=== PATIENT | female | born 1950 | race Caucasian/White ===

== ENCOUNTER → 2018-05-05 03:43 | Outpatient (CLI) | payer MEDICARE, SELFPAY ==
[2018-05-05 09:47] LABS: ALT 29 U/L (12-78); AST 48 U/L (15-37); Albumin 3.6 g/dL (3.4-5.0); Alkaline Phosphatase 123 U/L (46-116); Anion Gap 11.1 mmol/L (3-11); BUN 9 mg/dL (7-18); Bilirubin, Total 0.4 mg/dL (0.2-1.0); CO2 24.9 mmol/L (21.0-32.0); CREATININE 0.68 mg/dL (0.55-1.02); Calcium 8.9 mg/dL (8.5-10.1); Chloride 97 mmol/L (98-107); Cholesterol 199 mg/dL (50-200); Glucose 102 mg/dL (70-100); HDL Cholesterol 69 mg/dL (40-60); LDL CHOLESTEROL 120 mg/dL (<100); Potassium 4.6 mmol/L (3.5-5.1); Sodium 133 mmol/L (136-145); Total Protein 7.3 g/dL (6.4-8.2); Triglyceride 57 mg/dL (30-150)
== END ==
DX: E78.2 Mixed hyperlipidemia (principal); I10 Essential (primary) hypertension; J45.909 Unspecified asthma, uncomplicated; K21.9 Gastro-esophageal reflux disease without esophagitis; R94.5 Abnormal results of liver function studies
CPT/HCPCS: 36415; 80053; 80061; 83721

== ENCOUNTER 2020-05-22 02:38 | Outpatient (CLI) | payer MEDICARE, SELFPAY ==
[2020-05-22 10:46] LABS: ALT 35 U/L (14-59); AST 118 U/L (15-37); Albumin 2.3 g/dL (3.4-5.0); Alkaline Phosphatase 172 U/L (46-116); Anion Gap 11.1 mmol/L (3-11); BUN 10 mg/dL (7-18); Bilirubin, Total 1.7 mg/dL (0.2-1.0); CO2 26.9 mmol/L (21.0-32.0); CREATININE 0.74 mg/dL (0.55-1.02); Calcium 8.4 mg/dL (8.5-10.1); Chloride 93 mmol/L (98-107); Glucose 116 mg/dL (74-106); Potassium 3.8 mmol/L (3.5-5.1); Sodium 131 mmol/L (136-145); Total Protein 7.6 g/dL (6.4-8.2)
== END 2020-05-22 02:58 ==
DX: I10 Essential (primary) hypertension (principal); K21.9 Gastro-esophageal reflux disease without esophagitis; F32.9 Major depressive disorder, single episode, unspecified; R94.5 Abnormal results of liver function studies
CPT/HCPCS: 36415; 80053

== ENCOUNTER 2020-06-15 12:14 | Inpatient (IN) | payer MEDICARE, SELFPAY ==
--- NOTE | 2020-06-15 | DI.US_ITS ---
APPROVED REPORT EXAM: Comprehensive 2D, Doppler, and color-flow Echocardiogram Patient Location: ER Manuscripts Archivist: Lizeth Marquez RDCS (AE) Indications: CHF Other Information Study Quality: Adequate Conclusion Left Ventricle : The left ventricle is normal size. The left ventricular systolic function is normal. The left ventricular ejection fraction is within the normal range. There is normal left ventricular wall thickness. There is normal LV segmental wall motion. Diastolic function is indeterminate. LVEF i s 55-60%. Right Ventricle : Right ventricle is borderline dilated. The right ventricular systolic function is n ormal. The RVSP is 45.9 mmHg. Atria : Left atrium is mildly dilated. The right atrium size is normal. Aortic Valve : The Aortic valve is sclerotic. Aortic valve is trileaflet. There is no aortic valvular stenosis. Mild aortic regurgitation. Mitral Valve : Mild mitral annular calcification. No evidence of mitral valve stenosis. Mild to moder ate mitral regurgitation. Tricuspid Valve : The tricuspid valve is normal in structure. There is no tricuspid valve stenosis. M oderate to severe tricuspid regurgitation. Great Vessels : The aortic root is normal in size. The IVC collapses <50% with inspiration. The ascen ding aorta is mildly dilated. Aortic arch is not well visualized. Other: Large left pleural effusion. Wall motion Left Ventricle The left ventricle is normal size. The left ventricular systolic function is normal. The left ventric ular ejection fraction is within the normal range. There is normal left ventricular wall thickness. T here is normal LV segmental wall motion. Diastolic function is indeterminate. There is no ventricular septal defect visualized. LVEF is 55-60%. Right Ventricle Right ventricle is borderline dilated. The right ventricular systolic function is normal. The RVSP is 45.9 mmHg. Atria Left atrium is mildly dilated. The right atrium size is normal. The interatrial septum is intact with no evidence for an atrial septal defect. Aortic Valve The Aortic valve is sclerotic. Aortic valve is trileaflet. There is no aortic valvular stenosis. Mild aortic regurgitation. Mitral Valve Mild mitral annular calcification. No evidence of mitral valve stenosis. Mild to moderate mitral regu rgitation. Tricuspid Valve The tricuspid valve is normal in structure. There is no tricuspid valve stenosis. Moderate to severe tricuspid regurgitation. Pulmonic Valve The pulmonary valve is normal in structure. There is no pulmonic valvular stenosis. Trace pulmonic re gurgitation. Great Vessels The aortic root is normal in size. The ascending aorta is mildly dilated. Aortic arch is not well vis ualized. The IVC collapses <50% with inspiration. Pericardium There is no pericardial effusion. Large left pleural effusion. 2D Dimensions IVSD d PLAX 1.02 cm F: 0.6-1.0 LV Vol A2C d MOD 67.1 mL LVPW d PLAX 1.00 cm F: 0.6 - 1.0 LV Vol A4C d MOD 52.7 mL LVID d PLAX 3.77 cm F: 3.8 - 5.2 LA vol/ BSA A4C s A-L 29.4 mL/m2 LVDs 2.65 cm F: 2.2 - 3.5 LA Area A4C s MOD 17.11 cm2 Ao Root d 2.58 cm F: 2.7 - 3.3 LV EF A4C MOD 58.8 % RA Area A4C 9.75 cm2 LV EF A2C MOD 55.4 % RA Vol/ BSA A4C s A-L 13.6 mL/m2 LV EF Biplane MOD 57.2 % Ao Asc Diam d 3.40 cm F: 2.3 - 3.1 SV 34.40 mL LV EF Teichholz 57.3 % SV Index 21.02 mL/m2 LVEF (Ha's) 57.20 % F: 54 - 74 LV Volume 48.45 mL F: 46 - 106 LV Volume Index 29.72 mL/m2 F: 29 - 61 LV Vol Biplane MOD 60.1 mL FS 29.50 % M-Mode TAPSE 2.33 cm (M/F) >1.7 LV Diastology MV E' medial 0.064 (>0.07 m/s) E/A Ratio 0.7 LV E/e MED 6.95 (<14) MV E Vmax 0.44 (0.4-1.3 m/s) MV E' lateral 0.088 (>0.1 m/s) MV A Vmax 0.65 (0.4-1.3 m/s) LV E/e LAT 5.05 (<14) MV E/A Ratio 0.65 MV E/E' medial 7.00 MV E/E' lateral 5.05 Aortic Valve LVOT Area 2.73 cm2 AoV Area Vmax 1.92 cm2 LVOT Vmax 0.96 m/s AoV Area/ BSA (Vmax) 1.18 cm2/m2 LVOT Mean Ronaldo. 0.64 m/s IZZY Mean Ronaldo. 1.85 cm2 LVOT Peak Grad 3.7 mmHg IZZY Mean Ronaldo. Index 1.13 cm2/m2 LVOT Mean Grad 1.9 mmHg AR DT 1265 msec LVOT VTI 0.173 m AR PHT 367 msec LVOT Diam s 1.85 cm AoV Vmax 1.37 m/s Velocity Ratio 0.70 AoV Mean Ronaldo. 0.95 m/s AoV Peak Grad 7.5 mmHg LVOT SV 47.39 mL AoV Mean Grad 4.2 mmHg AoV VTI 0.220 m AoV Area VTI 2.15 cm2 AoV Area/ BSA (VTI) 1.31 cm/m2 Mitral Valve MV DT 238 (160-240 msec) MV PHT 69 msec MV Area PHT 3.19 cm2 Pulmonary Valve PV Vmax 0.96 (0.5-1.5 m/s) RVOT Peak Gr. 1.74 mmHg PV Peak Grad 3.7 mmHg RVOT Mean Gr. 0.75 mmHg PV Mean Grad 2.0 mmHg RVOT VTI 0.110 m PV VTI 0.130 m RVOT Vmax 0.66 m/s Tricuspid Valve TR Peak Grad 37.9 mmHg TR Vmax 3.08 m/s RA Pressure 8.00 mmHg RVSP (TR) 45.9 mmHg
--- NOTE | 2020-06-15 | DI.US_ITS ---
EXAM: US ABDOMEN CLINICAL HISTORY: elevated LFT's, ? cirrhosis, new CHF TECHNIQUE: Ultrasound performed using standard protocol. COMPARISON: US US ECHOCARDIOGRAM from 06/15/[address] CHEST WO from 06/15/2020 FINDINGS: Abdominal ultrasound was performed and is of limited technical quality. Aorta was incompletely visua lized, visualized portions are of normal diameter. IVC is of normal diameter. Liver is heterogeneou s in appearance and has a nodular contour consistent with cirrhosis. No biliary dilatation. Signifi cant portions of the liver are nonvisualized. Pancreas is not well seen due to overlying bowel gas. There is no evidence of cholelithiasis. No gallbladder wall thickening. Negative sonographic Potts sign noted. The kidneys are grossly unremarkable in appearance although not well seen. No hydronephrosis or neph rolithiasis. There is massive abdominal ascites as seen CT examination. IMPRESSION: Ascites and findings consistent with hepatic cirrhosis. No evidence of cholelithiasis. DATA REPOSITORY:
--- NOTE | 2020-06-15 12:00 | RT.EKG_ITS ---
APPROVED REPORT Exam: Resting ECG Patient Location: E HR:86 bpm ECG Measurements Heart Rate 86 AXIS SC 160 P 39 QRSd 86 QRS 65 QT 404 T 66 QTc 483 Conclusion Sinus rhythm. Ventricular premature complex. Low voltage, extremity leads..
[2020-06-15 12:06] VITALS: BP 126/90; PULSE 85; RESP 24; TEMP 36.5; O2SAT 96
--- NOTE | 2020-06-15 12:06 | ED.GENADUL_ITS ---
Discharge Plan Disposition Patient Disposition: [facility] INPATIENT Condition: Stable Discharge Details Clinical Impression: CHF (congestive heart failure), Ascites Admit Date/Time: 06/15/20 14:23 Admit Provider: Vasiliy Olivas Attending Provider: Vasiliy Olivas Primary Care Provider: Janice Liao ED Provider: Stephany Shea Medical Decision Making 70-year-old female presents to the ER with chief complaint of generalized weakness which is been ongoing for the last week. Worse the last 3 days. EMS reports that they found her sitting on the floor alert and oriented complaining of weakness her significant other was unable to get her up off the floor. Patient denies fall today but does report a fall yesterday and has had increasingly frequent falls. She does have a history of asthma, depression, alcohol abuse, hypertension, depression. She is alert and oriented x4 upon arrival not complaining of any pain anywhere. She does have increased work of breathing and prolonged expiration she is sating 95% on room air does not wear oxygen on a normal basis. She has no focal neuro deficits noted. No signs of trauma. She denies any chest pain. EKG was reviewed by Dr. Dewayne Arias MD ER attending, please see his official read. CBC showed a white blood cell count of 12.84, absolute neutrophils 10.61 PT 13.8 INR 1.4, sodium 135, calcium 8.4 magnesium 1.5, total bilirubin is 1.4. AST is 74, ALT is 27, alk phos is 178 initial troponin is within normal limits. proBNP is 1372. And albumin is 2.1. CT chest shows bilateral pleural effusions, massive abdominal ascites. EXAM: CT CHEST WO CLINICAL HISTORY: Eval Pulmonary effusions TECHNIQUE: COMPARISON: CR XR CHEST 2V PA LATERAL from 06/15/2020 FINDINGS: Noncontrast CT examination of chest. Was performed. There is massive abdominal ascites and there are bilateral pleural effusions. The hepatic contour is nodular consistent with cirrhosis. No focal pulmonary consolidation seen. No mediastinal or hilar adenopathy. Normal cardiac size. Distended SVC noted, nonspecific. IMPRESSION: Sympathetic pleural effusions in a patient with massive abdominal ascites and cirrhosis. No focal pulmonary abnormality. CT chest without contrast was ordered due to patient's small IV gauge. Patient is a 22-gauge informed by [employer] operations staff officer patient took 6 IV sticks to establish IV access. 1414: Spoke with patient's significant other previous and discussed plan for potential admission here to the hospital for bilateral pleural effusions and increased shortness of breath and weakness. He verbalizes understanding discussed this with patient as well and she verbalizes understanding. 1430: Spoke with Dr. Marquez who is on for hospitalist, discussed case and details with him, who agrees to admit patient for MedSurg telemetry. We will give patient 20 mg of Lasix IV push inform patient and plan of care she verbalizes understanding at this time. HPI General Mode of arrival: EMS . Date/Time Provider Initiated Documentation: 06/15/20 12:22 . Limitations to Documentation: no limitations . Information obtained by: patient and EMS . HPI Narrative: 70-year-old female presents to the ER with chief complaint of generalized weakness which is been ongoing for the last week. Worse the last 3 days. EMS reports that they found her sitting on the floor alert and oriented complaining of weakness her significant other was unable to get her up off the floor. Patient denies fall today but does report a fall yesterday and has had increasingly frequent falls. She does have a history of asthma, depression, alcohol abuse, hypertension, depression. She is alert and oriented x4 upon arrival not complaining of any pain anywhere. She does have increased work of breathing and prolonged expiration she is satting 95% on room air does not wear oxygen on a normal basis. She has no focal neuro deficits noted. No signs of trauma. She denies any chest pain. Related Data Home Medications Medication Instructions Recorded Confirmed aspirin 2 - 3 tab PO BID PRN tab-cap 01/22/13 06/15/20 calcium carbonate-vitamin D3 1 tab-cap PO BID tab.chew 01/22/13 06/15/20 [Os-Rj 500+D Tablet Chewable] multivitamin with minerals 1 cap PO DAILY 01/22/13 06/15/20 azelastine 1 drp OPHTHALMIC BID #1 bottle 01/14/17 06/15/20 Hydrocortisone/Aloe Vera 28 gm TOPICAL TID 05/04/18 06/15/20 [Cortizone-10 1% Creme] mupirocin 1 génesis TOPICAL BID #1 tube 05/04/18 06/15/20 magnesium chloride 64 mg 64 mg PO BID #180 tab-cap 05/05/19 06/15/20 (magnesium chloride) tablet,delayed release triamcinolone acetonide 0.1 % 1 applic TP BID #30 gm 05/05/19 06/15/20 topical ointment fluticasone propionate 50 1 - 2 spray NS daily prn #1 spray 07/22/19 06/15/20 mcg/actuation nasal spray,suspension albuterol sulfate 90 mcg/actuation 2 puff INHALATION Q6H PRN #3 11/05/19 06/15/20 aerosol inhaler inhaler loratadine 10 mg tablet 10 mg PO DAILY PRN #90 tab-cap 05/08/20 06/15/20 omeprazole 20 mg capsule,delayed 20 mg PO DAILY #90 tab-cap 05/08/20 06/15/20 release metoprolol succinate 25 mg 25 mg PO DAILY #90 tab 05/17/20 06/15/20 tablet,extended release 24 hr fluticasone propion-salmeterol 2 inh IH BID 06/15/20 06/15/20 [Advair Diskus] Previous Rx's Medication Instructions Recorded mupirocin 1 génesis TOPICAL BID #1 tube 05/04/18 magnesium chloride 64 mg 64 mg PO BID #180 tab-cap 05/05/19 (magnesium chloride) tablet,delayed release triamcinolone acetonide 0.1 % 1 applic TP BID #30 gm 05/05/19 topical ointment fluticasone propionate 50 1 - 2 spray NS daily prn #1 spray 07/22/19 mcg/actuation nasal spray,suspension albuterol sulfate 90 mcg/actuation 2 puff INHALATION Q6H PRN #3 11/05/19 aerosol inhaler inhaler loratadine 10 mg tablet 10 mg PO DAILY PRN #90 tab-cap 05/08/20 omeprazole 20 mg capsule,delayed 20 mg PO DAILY #90 tab-cap 05/08/20 release metoprolol succinate 25 mg 25 mg PO DAILY #90 tab 05/17/20 tablet,extended release 24 hr Allergies Allergy/AdvReac Type Severity Reaction Status Date / Time diphenhydramine AdvReac Unknown INTOLERANT Verified 06/15/20 12:13 Review of Systems Narrative: Constitutional: Negative for weight loss, alert and oriented, well groomed, normal body habitus, appears comfortable. HEENT: Denies trauma, headaches, blurry vision, nasal discharge, sore throat, trouble swallowing. Chest: Denies chest pain, palpitations, irregular rhythm, hypertension. Respiratory: Denies cough, hemoptysis. Positive shortness of breath. GI: Denies abdominal pain, nausea, vomiting, diarrhea, constipation. : Denies dysuria, hematuria, flank pain, rectal bleeding. Neuro: Denies dizziness, blurry vision, syncope, headache or facial numbness. Positive generalized weakness. Hematologic: Denies easy bruising, intolerance to heat or cold, hair loss. [facility] Medical History Alcohol abuse (06/11/11) macrocytosis Allergic rhinitis Ankle fracture (03/28/06) Impacted cerumen of both ears Family History Mother Essential hypertension Heart disease Father Lung cancer Brother No problems noted. Sister Essential hypertension Depression Son No problems noted. Son No problems noted. Son No problems noted. Daughter No problems noted. Daughter No problems noted. Social History Smoking/Tobacco Use Status: Never Second Hand Exposure: Yes Alcohol Intake: current Alcohol Intake frequency: 0-2 drinks per day Alcohol type: wine Drug use: Never Substance use type: does not use Caregiver/Support person: No Household members: significant other Housing: house Communication Needs: None Do you need help understanding health information?: Rarely Pets and animals: No Sexually active: Yes Do you think of yourself as: straight/heterosexual Current gender identity: female What is your relationship status?: living with partner How often do you talk on the phone with friends or family?: three or more times per week How often do you get together with friends or relatives?: decline to answer How often do you attend denominational or scientology services?: decline to answer Do you belong to any clubs or organized social groups?: no Panel score (0-1 are the most socially isolated patients): 2 What type of physical activity do you participate in: walking Duration: 15-30 minutes/day Frequency: 1-2 times per week Ketty/Nondenominational: [employer] Special ketty needs: No Seatbelt use: always Drive intox or ride w/intox bulk delivery driver: No Do you feel safe at home: Yes Do you feel safe in your relationship?: Yes Exam Narrative Exam Narrative: Constitutional: Alert and oriented x3. Appears stated age. Normal body habitus. Dry mucous membranes. Head: Normocephalic, no trauma. Eyes: Pupils PERRLA, Red reflex noted, EOM's intact. Eyelids symmetrical without lesions, discharge, or swelling. Slight scleral icterus ENT: Bilateral TM's WNL, External ear normal to inspection, no mastoid TTP, swelling, or erythema, Nasal turbinates WNL, no nasal discharge. Normal dentition, Posterior pharynx WNL, no exudate. Chest: RRR, Normal S1, S2, distal pulses intact. Resp: Lungs clear to auscultation bilaterally, no wheezes, rales, or rhonchi. Increased work of breathing, prolonged expiratory.. Musculoskeletal: Normal gait, 5/5 strength to bilateral upper extremities, 2 out of 5 strength to lower extremities. Intact dorsiflexion and pedal flexion. Skin: Capillary refill less than 2 sec. does have multiple healing bruises and skin tear noted on her bilateral upper forearms. Neurologic: Cranial nerves II-XII intact. Alert and oriented x 3. DTR's intact. Hematologic/Lymphatic: No ecchymosis, no lymphadenopathy.
[2020-06-15] MEDS: Normal Saline 1,000 ML 125 ML IV (13:08)
[2020-06-15 13:15] LABS: Abs Immature Grans 0.08 10^3/uL (0.0-0.06); Absolute Basophil Count 0.05 10^3/uL (0.0-0.2); Absolute Lymphocyte Count 1.12 10^3/uL (1.2-3.4); Absolute Monocyte Count 0.92 10^3/uL (0.1-0.8); Basophils % 0.4; Eosinophils % 0.5; HCT 33.9 % (36.0-46.0); HGB 11.4 g/dL (11.2-15.7); Immature Grans % 0.6; Lymphocytes % 8.7; MCH 36.2 pg (27.0-33.0); MCHC 33.6 % (32.0-36.0); MCV 107.6 fL (80-95); MPV 10.1 fL (8.0-11.0); Monocytes % 7.2; Neutrophils % 82.6; Platelet Count 259 10^3/uL (130-400); RBC 3.15 10^6/uL (3.93-5.22); RDW 18.4 % (11.7-14.6); RDW-SD 72.3 fL; WBC 12.84 10^3/uL (4.4-10.8)
[2020-06-15 13:17] LABS: Absolute Eosinophil Count 0.06 10^3/uL (0.0-0.7); Absolute Neutrophil Count 10.61 10^3/uL (1.2-6.7)
--- NOTE | 2020-06-15 13:28 | DI.RAD_ITS ---
EXAM: XR CHEST 2V PA LATERAL CLINICAL HISTORY: Weakness, SOB TECHNIQUE: COMPARISON: No exams were available for comparison FINDINGS: Heart is enlarged. There are moderate-sized bilateral pleural effusions. Minimal streaky radiodensi ties noted in perihilar regions and lung bases, question mild interstitial edema. IMPRESSION: Findings consistent with acute CHF. Appropriate follow-up radiographs requested. RADIATION DOSE DELIVERED: Total DLP
[2020-06-15 13:29] LABS: Anisocytosis 1+; Basophilic Stippling Present; Diff Comment Agrees w/ Instrument; Macrocytosis 2+; Nucleated RBC 1 %
[2020-06-15 13:30] LABS: ALT 27 U/L (14-59); AST 74 U/L (15-37); Albumin 2.1 g/dL (3.4-5.0); Alkaline Phosphatase 178 U/L (46-116); BUN 10 mg/dL (7-18); Bilirubin, Total 1.4 mg/dL (0.2-1.0); CREATININE 0.76 mg/dL (0.55-1.02); Calcium 8.4 mg/dL (8.5-10.1); Chloride 100 mmol/L (98-107); Glucose 113 mg/dL (74-106); Magnesium 1.5 mg/dL (1.8-2.4); Polychromasia Present; Potassium 3.6 mmol/L (3.5-5.1); Sodium 135 mmol/L (136-145); Target Cells 2+
[2020-06-15 13:32] LABS: Troponin I < 0.05 ng/mL (<0.06)
--- NOTE | 2020-06-15 14:00 | DI.CT_ITS ---
EXAM: CT CHEST WO CLINICAL HISTORY: Eval Pulmonary effusions TECHNIQUE: COMPARISON: CR XR CHEST 2V PA LATERAL from 06/15/2020 FINDINGS: Noncontrast CT examination of chest. Was performed. There is massive abdominal ascites and there are bilateral pleural effusions. The hepatic contour is nodular consistent with cirrhosis. No focal pulmonary consolidation seen. No mediastinal or hilar adenopathy. Normal cardiac size. Di stended SVC noted, nonspecific. IMPRESSION: Sympathetic pleural effusions in a patient with massive abdominal ascites and cirrhosis. No focal pu lmonary abnormality. RADIATION DOSE DELIVERED: 326.42mGy.cm Total DLP
[2020-06-15] MEDS: MAGNESIUM SULFATE 1 GM/100 ML BAG IVPB ×2 (14:02→17:30)
[2020-06-15 14:27] LABS: NT-proBNP 1372 pg/mL (<300)
--- NOTE | 2020-06-15 14:30 | W.PM.HP.N ---
Date of service: 06/15/20 Time of Service: 14:30 Assessment and Plan Assessment and plan (1) Ambulatory dysfunction: Status: Acute Assessment and plan: severe will multiple recent falls. falls precautions, PT/OT, denies saddle anesthesia, no urinary retention or incontinence of bowel. no signs of cord compression syndrome. (2) CHF (congestive heart failure): Status: Chronic Assessment and plan: new diagnosis, possible cirrhotic cardiomyopathy, echocardiogram pending. given lasix in ED. monitor I&O, daily weights, consider jason if BP allows and echo confirms. large pleural effusion likely secondary to ascities (3) Elevated LFTs: Status: Chronic Assessment and plan: likely ETOH abuse, slightly improved since april, massive ascities, order abdominal US to evaluate for cirrhosis, malignancy, varices. add coags (4) Asthma: Status: Chronic Assessment and plan: SOB symptoms suspected to be r/t fluid overload, will continue home inhalers and closely monitor (5) Alcohol abuse: Status: Suspected Assessment and plan: CIWA scale while hospitalized. denies excessive or daily use, states once in a while thiamine suspicion of cirrhosis. (6) Esophageal reflux: Status: Chronic Assessment and plan: continue omeprazole (7) Hypertension: Status: Chronic Assessment and plan: stable, continue metoprolol, monitor and adjust as needed. (8) DVT prophylaxis: Status: Acute Assessment and plan: teds scds heparin (9) Discharge planning issues: Status: Acute Assessment and plan: case management consulted case discussed with Dr Olivas who is in agreement with plan History of Present Illness History of Present Illness Chief Complaint: generalized weakness Narrative: This is a 70-year-old female presented to the ED with chief complaint of generalized weakness which is been ongoing for the last week. Worse the last 3 days. EMS reports that they found her sitting on the floor alert and oriented complaining of weakness her significant other was unable to get her up off the floor. Patient denies fall today but does report a fall yesterday and has had increasingly frequent falls. She does have a history of asthma, depression, alcohol abuse, hypertension, depression. She is alert and oriented x4 upon arrival not complaining of any pain anywhere. She does have increased work of breathing and prolonged expiration she is sating 95% on room air does not wear oxygen on a normal basis. She has no focal neuro deficits noted. She denies any chest pain or fevers. work up in the ED concerning for CHF. She will be given lasix IV and admitted to med/surg for further evaluation. Review of Systems Constitutional Constitutional: Reports fatigue, Reports frequent falls and Reports weakness (generalized) Cardiovascular Cardiovascular: Denies chest pain and Reports dyspnea Respiratory Respiratory: Reports cough and Reports dyspnea Gastrointestinal Gastrointestinal: Denies abdominal pain Integumentary/Breasts Skin/Breast: Reports other (skin tear right forearm, scattered bruising of various stages of healing) Neurologic Neurologic: Reports frequent falls and Reports weakness (generalized) Endocrine Endocrine: Reports fatigue [facility] Medical History Alcohol abuse (06/11/11) macrocytosis Allergic rhinitis Ankle fracture (03/28/06) Impacted cerumen of both ears Family History Mother Essential hypertension Heart disease Father Lung cancer Brother No problems noted. Sister Essential hypertension Depression Son No problems noted. Son No problems noted. Son No problems noted. Daughter No problems noted. Daughter No problems noted. Social History Smoking/Tobacco Use Status: Never Second Hand Exposure: Yes Alcohol Intake: current Alcohol Intake frequency: 0-2 drinks per day Alcohol type: wine Drug use: Never Substance use type: does not use Caregiver/Support person: No Household members: significant other Housing: house Communication Needs: None Do you need help understanding health information?: Rarely Pets and animals: No Sexually active: Yes Do you think of yourself as: straight/heterosexual Current gender identity: female What is your relationship status?: living with partner How often do you talk on the phone with friends or family?: three or more times per week How often do you get together with friends or relatives?: decline to answer How often do you attend gnosticism or worship services?: decline to answer Do you belong to any clubs or organized social groups?: no Panel score (0-1 are the most socially isolated patients): 2 What type of physical activity do you participate in: walking Duration: 15-30 minutes/day Frequency: 1-2 times per week Ketty/Uatsdin: Moravian Special ketty needs: No Seatbelt use: always Drive intox or ride w/intox speedboat driver: No Do you feel safe at home: Yes Do you feel safe in your relationship?: Yes Meds Home Medications and Allergies Home Medications Medication Instructions Recorded Confirmed Type aspirin 2 - 3 tab PO BID PRN tab-cap 01/22/13 06/15/20 History calcium carbonate-vitamin D3 1 tab-cap PO BID tab.chew 01/22/13 06/15/20 History [Os-Rj 500+D Tablet Chewable] multivitamin with minerals 1 cap PO DAILY 01/22/13 06/15/20 History azelastine 1 drp OPHTHALMIC BID #1 bottle 01/14/17 06/15/20 History Hydrocortisone/Aloe Vera 28 gm TOPICAL TID 05/04/18 06/15/20 History [Cortizone-10 1% Creme] mupirocin 1 génesis TOPICAL BID #1 tube 05/04/18 06/15/20 Rx magnesium chloride 64 mg 64 mg PO BID #180 tab-cap 05/05/19 06/15/20 Rx (magnesium chloride) tablet,delayed release triamcinolone acetonide 0.1 % 1 applic TP BID #30 gm 05/05/19 06/15/20 Rx topical ointment fluticasone propionate 50 1 - 2 spray NS daily prn #1 spray 07/22/19 06/15/20 Rx mcg/actuation nasal spray,suspension albuterol sulfate 90 mcg/actuation 2 puff INHALATION Q6H PRN #3 11/05/19 06/15/20 Rx aerosol inhaler inhaler loratadine 10 mg tablet 10 mg PO DAILY PRN #90 tab-cap 05/08/20 06/15/20 Rx omeprazole 20 mg capsule,delayed 20 mg PO DAILY #90 tab-cap 05/08/20 06/15/20 Rx release metoprolol succinate 25 mg 25 mg PO DAILY #90 tab 05/17/20 06/15/20 Rx tablet,extended release 24 hr fluticasone propion-salmeterol 2 inh IH BID 06/15/20 06/15/20 History [Advair Diskus] Allergies Allergy/AdvReac Type Severity Reaction Status Date / Time diphenhydramine AdvReac Unknown INTOLERANT Verified 06/15/20 12:13 Exam Const General: cooperative, comfortable, no acute distress and ill appearing (older than stated age) chronically Nutritional Appearance: average body habitus Orientation: alert, awake and oriented x3 [facility] Head: normal to inspection, normocephalic and atraumatic Mouth: oral mucosae normal Resp Effort & Inspection: no cough and tachypneic Auscultation: diminished lung sounds Cardio Rate: regular rate Rhythm: regular rhythm GI Inspection: edema Palpation: nontender and ascites (extensive) Auscultation: normal bowel sounds Skin General skin exam: ecchymosis (various scattered bruising) Lesions: lesion noted (abrasion/skin tear to right upper extremity) Rashes: no rashes Neuro General: patient alert, patient awake, patient oriented x3 and moves all extremities Extrem General: no pedal edema Results Labs Result diagrams: 06/16/20 06:58 06/16/20 06:58 Labs: Laboratory Results - last 24 hr 06/15/20 06/15/20 06/15/20 13:00 13:00 13:00 WBC 12.84 H RBC 3.15 L Hgb 11.4 Hct 33.9 L MCV 107.6 H MCH 36.2 H MCHC 33.6 RDW 18.4 H Plt Count 259 MPV 10.1 Immature Gran % 0.6 Neutrophils % 82.6 Lymphocytes % 8.7 Monocytes % 7.2 Eosinophils % 0.5 Basophils % 0.4 Nucleated RBC % 1 Absolute Neutrophils 10.61 H Absolute Lymphocytes 1.12 L Absolute Monocytes 0.92 H Absolute Eosinophils 0.06 Absolute Basophils 0.05 RBC Morphology See below Polychromasia Present Basophilic Stippling Present Anisocytosis 1+ Macrocytosis 2+ Sodium 135 L Potassium 3.6 Chloride 100 Carbon Dioxide 27.0 Anion Gap 8.0 BUN 10 Creatinine 0.76 Estimated GFR/1.73 m2 >= 60.00 Glucose 113 H Calcium 8.4 L Magnesium 1.5 L Total Bilirubin 1.4 H AST 74 H ALT 27 Alkaline Phosphatase 178 H Troponin I < 0.05 NT-Pro-B Natriuret Pep 1372 H Total Protein 8.0 Albumin 2.1 L Last Vital Signs Temp 36.5 C 06/15/20 12:06 Pulse 85 06/15/20 12:06 Resp 24 06/15/20 12:06 BP 126/90 06/15/20 12:06 Pulse Ox 96 06/15/20 12:06 COVID-19 Screening Have you,or household,traveled outside [place] in last 14 days?: No Had IN PERSON contact w/suspected or confirmed C-19 person: No
[2020-06-15 15:01] LABS: INR 1.4 (0.9-1.1); Prothrombin Time 13.8 sec (9.3-11.0)
[2020-06-15 16:41] LABS: Troponin I < 0.05 ng/mL (<0.06)
[2020-06-15 17:06] VITALS: BP 130/85; PULSE 89; RESP 20; TEMP 35.5; O2SAT 92
[2020-06-15] MEDS: Potassium Chloride 20 MEQ TABCR PO ×2 (17:30→19:05)
[2020-06-15] MEDS: Furosemide 20 MG/2 ML VIAL (17:30)
[2020-06-15] MEDS: Heparin 5,000 UNITS/ML VIAL 5000 UNITS SC (19:03)
[2020-06-15] MEDS: Metoprolol 12.5 MG TAB PO (19:06)
[2020-06-15] MEDS: Magnesium Chloride 64 MG TABCR PO (19:06)
[2020-06-15] MEDS: Budesonide/Formoterol 160/4.5 6 GM 60 PUFF INH IH (19:32)
[2020-06-16 00:14] VITALS: BP 134/89; PULSE 89; RESP 16; TEMP 36.3; O2SAT 94
[2020-06-16 01:47] LABS: COVID-19 RT-PCR UVMMC Result Negative (Negative)
[2020-06-16 04:00] VITALS: BP 138/82; PULSE 66; RESP 18; TEMP 36.6; O2SAT 97
[2020-06-16] MEDS: Heparin 5,000 UNITS/ML VIAL 5000 UNITS SC ×2 (06:10→18:22)
[2020-06-16 07:17] LABS: HCT 30.8 % (36.0-46.0); HGB 10.5 g/dL (11.2-15.7); MCHC 34.1 % (32.0-36.0); MCV 105.5 fL (80-95); MPV 10.2 fL (8.0-11.0); Platelet Count 219 10^3/uL (130-400); RBC 2.92 10^6/uL (3.93-5.22); RDW 17.2 % (11.7-14.6); RDW-SD 66.2 fL
[2020-06-16 07:21] LABS: Ammonia 20 umol/L (11-32)
[2020-06-16 07:32] LABS: ALT 22 U/L (14-59); AST 55 U/L (15-37); Albumin 1.6 g/dL (3.4-5.0); Alkaline Phosphatase 132 U/L (46-116); Anion Gap 7.5 mmol/L (3-11); BUN 11 mg/dL (7-18); CO2 27.5 mmol/L (21.0-32.0); CREATININE 0.61 mg/dL (0.55-1.02); Calcium 7.8 mg/dL (8.5-10.1); Chloride 102 mmol/L (98-107); Glucose 96 mg/dL (74-106); Magnesium 1.6 mg/dL (1.8-2.4); Potassium 3.4 mmol/L (3.5-5.1); Sodium 137 mmol/L (136-145); Total Protein 6.3 g/dL (6.4-8.2)
[2020-06-16 07:34] LABS: Troponin I < 0.05 ng/mL (<0.06)
[2020-06-16 08:27] VITALS: BP 142/93; PULSE 89; RESP 18; TEMP 36.6; O2SAT 96
[2020-06-16] MEDS: Omeprazole 20 MG CAPCR PO (08:31)
[2020-06-16] MEDS: Furosemide 20 MG TAB PO (08:31)
[2020-06-16] MEDS: Metoprolol 12.5 MG TAB PO (08:31)
[2020-06-16] MEDS: Normal Saline Flush 10 ML SYR IVP ×2 (08:31→09:41)
[2020-06-16] MEDS: Budesonide/Formoterol 160/4.5 6 GM 60 PUFF INH IH ×2 (08:52→20:09)
--- NOTE | 2020-06-16 09:32 | OT.INIE ---
Occupational Therapy Notes Inpatient Occupational Therapy Evaluation Date: 06/16/20 Referring Doctor:Jackie Grider NP OT Orders: Non-URgent Precautions: Fall, Standard, Full PATIENT PROFILE/ADMITTING DIAGNOSIS: Pt is a 70 year old female who reported to the ED on 06/15/20. Pt was admitted to Med Surg with a dx of CGF, Ascites, asthma, c/o generalized weakness, elevated LFTs, suscpected alcohol abuse, esophageal reflux, HTN and frequent falls. Past Medical History- Medical History Alcohol abuse (06/11/11) macrocytosis Allergic rhinitis Ankle fracture (03/28/06) Impacted cerumen of both ears Social History/Home Situation: Pt states that she lives with her significant other Luis Manuel. She states that she does not drive and is (I) at her baseline level of function. She has decreased safety in the past week due to multiple falls, and she states that she is (I) with her dressing and bathing inthe sitting position. Equipment owned/DME: shower chair, grab bars, raised toilet seat SUBJECTIVE: Pt was sitting in chair when OT arrived. She reports that she is not interested in OT services at this time and would like to hold on this service. OBJECTIVE: General Observation: IV (L) UE, telemetry Mental Status: A&Ox4 ROM: RUE WFL L UE WFL STRENGTH: RUE 4/5 throughout globally LUE 4/5 throughout globally SENSATION: Intact (B) UE FUNCTIONAL MOBILITY/ADLS: [] *Pt denies performance of all ADLs/IADL routines, she states that she is not interested in OT services and would like to hold at this time. EATING (I) sitting in chair BALANCE: Static sitting Normal Dynamic Sitting Normal SPECIAL TESTS: Daily Activity Limitations Standardized Measure [facility] AM -PAC ?6 clicks? Daily Activity Inpatient Short Form: Raw score: 21 Standardized score: 44.27 CMS score: 32.79% INFORMED CONSENT/EDUCATION: Pt instructed in purpose of OT Consult and plan of care. ASSESSMENT: Patient is a 70-year-old female referred to occupational therapy services with diagnosis of CHF, Ascites, asthma, c/o generalized weakness, elevated LFTs, freq falls, alcohol abuse which is suspected, esophageal reflux, HTN. Patient presents with clinical signs and symptoms consistent with dx. OT went to see pt for OT consult and pt refuses the need for skilled OCcupational Therapy at this time. She reports that she feels that she is (I) and at her baseline and would benefit more from Physical Therapy to strengthen her legs. OT will plan to discharge pt at this time based on her refusal for services. [facility] score 21 Patient is assessed as a Low 34738 complexity based on the following: History: see above Examination: see functional limitations as noted above Presentation: evolving Decision Making: [facility] 21 GOALS N/A seen for OT consult only. PLAN OF CARE/TREATMENT PLAN: Discharge skilled OT services. DISCHARGE RECOMMENDATIONS Pt is refusing Occupational Therapy services at this time. She states that she feels that her deficits are more related to Physical Therapy. OT will discharge pt at this time and recommends that pt return home when medically cleared per MD. TREATMENT TIME/MINUTES/CODES 75840, 20 minutes (09:20) Ronda Escobedo, OTR/L [facility]
[2020-06-16] MEDS: Spironolactone 50 MG TAB 100 MG PO (09:40)
[2020-06-16] MEDS: Furosemide 20 MG TAB 40 MG PO (09:41)
[2020-06-16] MEDS: MAGNESIUM SULFATE 2 GM/50 ML BAG IVPB (09:41)
[2020-06-16] MEDS: Potassium Chloride 20 MEQ TABCR PO (09:41)
--- NOTE | 2020-06-16 10:01 | PDOC.CMIN ---
- If Service Date Differs Date of service: 06/16/20 Time of Service: 17:25 Care Management Initial Assess REASON FOR HOSPITALIZATION:: CHF PAST MEDICAL HISTORY/PAST SURGICAL HISTORY:: Alcohol use disorder, allergic rhinitis, ankle fracture, impacted cerumen of both ears PREVIOUS FUNCTIONAL STATUS/SOCIAL/FAMILY SUPPORTS:: Vesta resides in [facility] with her life partner. She has a son, Yohannes who resides in [place] and is her main contact listed. She struggles with alcohol use disorder and has ambulatory dysfunction with multiple recent falls and new diagnosis of CHF. CURRENT FUNCTIONAL STATUS:: Vesta is being closely monitored in the ICU for CHF and alcohol withdrawal. She is on CIWA protocol and will be medicated accordingly. ADVANCE DIRECTIVES:: None on file. Has patient been provided with info about the portal/API?: No Did the patient sign up for the portal?: No CODE STATUS:: Full Code INSURANCE COVERAGE / FINANCIAL ISSUES:: Medicare. AARP CURRENT HOME/COMMUNITY SERVICES/EQUIPMENT:: No current services, equipment. PRIMARY CARE PHYSICIAN:: Janice Liao POTENTIAL DISCHARGE NEEDS:: Evaluation for further needs; currently a max 2 assist; may require SNF or increased services upon discharge. Anticipate PT consult to inform discharge planning considerations. PATIENT/FAMILY EDUCATION NEEDS:: Review discharge instructions, discuss Ask Me Three. ANTICIPATED BARRIERS TO DISCHARGE:: None identified at this time. TRANSPORTATION:: TBD by disposition. PLAN:: Vesta is being closely monitored in the ICU for CHF and alcohol withdrawal. She is on CIWA protocol and will be medicated accordingly. Evaluation for further needs; currently a max 2 assist; may require SNF or increased services upon discharge. Anticipate PT consult to inform discharge planning considerations. CM continues to follow.
--- NOTE | 2020-06-16 10:05 | IN_ITS ---
Date of service: 06/16/20 Time of Service: 10:05 PT Notes Visit Reasons: Congestive heart failure Physical Therapy Inpatient Initial Evaluation Date: 06/16/2020 Referring Doctor: Jackie Grider NP PT Orders: PT CONSULT: Eval/treat Precautions: Fall. Standard. Activity as tolerated Patient Profile/Admitting Diagnosis: Vesta is a 70-year-old female who presented to the ED on 06/15/2020 with a chief presentation of generalized weakness that has lasted for a week and was worse the past 3 days prior to ED admission. Per chart, EMS found her sitting on the floor alert and oriented with significant other unable to lift her off the floor. Patient is diagnosed with ambulatory dysfunction with chronic diagnosis of CHF, asthma, alcohol abuse, esophageal reflux, and hypertension. PMHX: Medical History Alcohol abuse (06/11/11) Macrocytosis Allergic rhinitis Ankle fracture (03/28/06) Impacted cerumen of both ears Social History/Home Situation: Patient lives with significant other in a private home with 3 steps to enter at the front and 4 at the back. She states that Luis Manuel her significant other is planning on building a ramp at the back. He states that she shares that house chores with Luis Manuel. She reports that she staff started using a front wheeled walker last Friday due to increasing weakness. 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 Equipment Owned/DME: Front wheeled walker, single-point cane, wheelchair Subjective: Vesta expresses that she needs a lot of help getting up. She reports that her legs may not be able to support her. She stresses that she does not want a fall on the floor when she stands up. She is considering SNF placement for short-term rehab in order to reduce fall risk at home. General Observation: Patient sitting on bedside chair. Fearful of falling. Telemetry monitoring in place. IV in the left UE. Mental Status: Alert and oriented x 4 Pain: None reported ROM: Right Upper Extremity: Shoulder flexion unable to complete the last 25% of the normal range. Shoulder abduction unable to complete the last 25% of the normal range. Elbow flexion WFL. Wrist flexion WFL. Opening and closing of hand WFL. Left Upper Extremity: Shoulder flexion unable to complete the last 25% of the normal range. Shoulder abduction unable to complete the last 25% of the normal range. Elbow flexion WFL. Wrist flexion WFL. Opening and closing of hand WFL. Right Lower Extremity: Hip flexion unable to complete the last 75% of the normal range. Hip abduction WFL unable to complete the last 75% of the normal range.. Knee flexion allows up to 50% of available range knee extension negative. 45 degrees. Ankle dorsiflexion about 10 degrees is. Ankle plantarflexion WFL. Left Lower Extremity: Hip flexion unable to complete the last 75% of the normal range. Hip abduction WFL unable to complete the last 75% of the normal range.. Knee flexion allows up to 50% of available range knee extension negative. 45 degrees. Ankle dorsiflexion about 10 degrees. Ankle plantarflexion WFL. Strength: Right Upper Extremity: Shoulder flexors 3-/5. Shoulder abductors 3-/5. Elbow flexors 4/5. Elbow extensors 4/5. Outside [employer] Sales weak but functional. Left Upper Extremity: Shoulder flexors 3-/5. Shoulder abductors 3-/5. Elbow flexors 4/5. Elbow extensors 4/5. Outside B2[employer] Sales weak but functional. Right Lower Extremity: Hip flexors 3-/5. Hip abductors 3-/5. Knee flexors 3-/5. Knee extensors 3-/5. Ankle dorsiflexors 3-/5. Ankle plantarflexors 4-/5. Left Lower Extremity:Hip flexors 3-/5. Hip abductors 3-/5. Knee flexors 3-/5. Knee extensors 3-/5. Ankle dorsiflexors 3-/5. Ankle plantarflexors 4-/5. Sensation: Intact as to pain and pressure on bilateral lower extremities. Bed Mobility/Transfers: Patient sitting on bedside chair Sit to stand moderate assist of 2,significantly fearful of falling Stand to sit minimal assist Chair to bedside commode moderate assist of 2,significantly fearful of falling Gait: 4 steps +4 steps using front wheeled walker with full weight bearing with moderate assist of 2 with very low self-confidence and is very fearful of falling. Very hesitant to take a step. Decreased step height. Balance: Static Sitting: Normal Dynamic Sitting: Good Static Standing: Fair Dynamic Standing: Poor Special Tests: Mobility Limitations Standardized Measure [employer] AM-PAC 6 clicks Basic Mobility Inpatient Short Form: Raw Score: 11 CMS Score: 73% deficit Informed Consent/Education: Patient instructed in purpose of PT consult and plan of care. Assessment: Vesta demonstrates significant fear of falling and requires the use of a front wheeled walker and assist of 2 people as well as encouragement and reassurance to perform transfers and ambulation, generalized weakness, gait instability, balance impairment, and increased risk for falls. Vesta is a 70-year-old female who presented to the ED on 06/15/2020 with a chief presentation of generalized weakness that has lasted for a week and was worse the past 3 days prior to ED admission. Per chart, EMS found her sitting on the floor alert and oriented with significant other unable to lift her off the floor. Patient is diagnosed with ambulatory dysfunction with chronic diagnosis of CHF, asthma, alcohol abuse, esophageal reflux, and hypertension. Patient presents with clinical signs and symptoms consistent with current/admitting diagnoses that have resulted to mobility limitations, gait instability, generalized weakness, and impairment of motor control as demonstrated by the following impairment level findings: 1. Decreased strength to B LE and UE major muscle groups 2. Impaired standing balance 3. Impaired activity tolerance 4. Limitation of joint range of motion in B UE/LE 5. Significant fear of falling Impairments are contributing to the following functional limitations: 1. Dependent bed mobility skills 2. Increased dependence with transfers 3. Inability to safely ambulate without assistive device and physical assistance 4. Increase completion time for mobility ADL performance 5. Increased fall risk 6. Inability to negotiate steps alone safely Patient is assessed as a 35993 moderate complexity based on the following: History: 70-year-old female with impairment level findings, functional limitations, and past medical history as indicated above Examination: Demonstrable impairment in strength, balance, and mobility level with underlying impairments and functional limitations as documented above Presentation:Evolving Decision Makin moderate complexity Goals: Goals X1 week 1. Supine-Sit independent 2. Sit-Supine independent 3. Sit-Stand independent 4. Stand-Sit independent 5. Bed-Chair independent 6. Chair-Bed independent 7. Independent gait on level surface with use of least restrictive device for at least 300 feet without report of pain nor dyspnea 8. Independent stair negotiation while holding onto bilateral rails for at least 5 steps without report of pain nor dyspnea 9. Good static and dynamic standing balance/tolerance Plan of Care/Treatment Plan: 1-2x/day, 7 days/week x 1 week. Plan of care has been reviewed with the TECHNOLOGY DIRECTOR providing the service under Physical Therapy direction. Initiate Physical Therapy intervention for strengthening, bed mobility, transfers, gait, stairs, balance training, use of assistive device. DISCHARGE RECOMMENDATIONS: Patient will benefit from correction facility placement for continued skilled physical therapy services in order to progress mobility level, strength, and balance in preparation for a safe discharge to home. TREATMENT CODE/TIME: 81253 x 25 minutes, [id number] x 15 minutes beginning at 10:05 AM. Thank you for the opportunity to participate in the care of this patient. Katya Chan PT, DPT, CLT [facility] [place], [place]
[2020-06-16 11:30] VITALS: BP 95/63; PULSE 75; RESP 19; TEMP 36.8; O2SAT 98
--- NOTE | 2020-06-16 13:01 | PGE_ITS ---
Date of Service Date of service: 06/16/20 Time of Service: 13:01 Assessment and Plan Assessment and plan (1) Cirrhosis of liver: Status: Acute Assessment and plan: d/t ETOH. has moderate ascities. some confusion overnight, likely hepatic encephalopathy started on spironolactone 100 mg and lasix 40 mg. also with hypoalbuminemia. nutrition consult placed ETOH abstinence discussed child-ramirez score of 10, class C (decompensated) 2 gm sodium diet, nutrition consult. no NSAIDS (2) Ambulatory dysfunction: Status: Acute Assessment and plan: severe will multiple recent falls. falls precautions, PT/OT, suspect possible ataxia from ETOH use. will continue to monitor. denies saddle anesthesia, no urinary retention or incontinence of bowel. no signs of cord compression syndrome. (3) CHF (congestive heart failure): Status: Chronic Assessment and plan: echo shows EF 55-60%. continue lasix and spironolactone. monitor I&O, daily weights, likely secondary to cirrhosis large pleural effusion likely secondary to ascities (4) Asthma: Status: Chronic Assessment and plan: respiratory symptoms suspected to be r/t fluid overload, will continue home inhalers and closely monitor add incentive spirometer (5) Alcohol abuse: Status: Suspected Assessment and plan: CIWA scale while hospitalized. denies excessive or daily use, states once in a while scoring 4 overnight high dose thiamine 2/5 days ativan prn abstinence discussed, not interested in rehab at this time with symptoms of grade 1 hepatic encephalopathy (6) Esophageal reflux: Status: Chronic Assessment and plan: continue omeprazole (7) Hypertension: Status: Chronic Assessment and plan: blood pressures low with diuresis, avoid BB and NSAIDS discontinue metoprolol monitor for now. (8) Severe protein-calorie malnutrition: Status: Acute Assessment and plan: nutrition consult high protein shakes between meals. (9) DVT prophylaxis: Status: Acute Assessment and plan: teds scds heparin (10) Discharge planning issues: Status: Acute Assessment and plan: case management consulted, will likely need [facility] rehab for severe ambulatory dysfunction, may benefit from ETOH rehab if interested case discussed with Dr Olivas who is in agreement with plan Subjective Subjective Interval history since last seen: some confusion overnight, otherwise no new c/o. working with physical therapy. poor po intake. no fevers. has oxygen requirements today. Exam Const General: cooperative, comfortable, no acute distress and ill appearing (older than stated age) chronically Nutritional Appearance: average body habitus Orientation: alert, awake and oriented x3 HENMT Head: normal to inspection, normocephalic and atraumatic Mouth: oral mucosae normal Resp Effort & Inspection: no cough and tachypneic Auscultation: diminished lung sounds Cardio Rate: regular rate Rhythm: regular rhythm GI Inspection: edema Palpation: nontender and ascites (extensive) Auscultation: normal bowel sounds Skin General skin exam: ecchymosis (various scattered bruising) Lesions: lesion noted (abrasion/skin tear to right upper extremity) Rashes: no rashes Neuro General: patient alert, patient awake, patient oriented x3 and moves all extremities Extrem General: no pedal edema Objective Last Vital Signs Temp 36.8 C 06/16/20 11:30 Pulse 75 06/16/20 11:30 Resp 19 06/16/20 11:30 BP 95/63 L 06/16/20 11:30 Pulse Ox 98 06/16/20 11:30 Laboratory Results - last 24 hr 06/15/20 06/15/20 06/15/20 13:00 13:00 13:00 WBC 12.84 H RBC 3.15 L Hgb 11.4 Hct 33.9 L MCV 107.6 H MCH 36.2 H MCHC 33.6 RDW 18.4 H Plt Count 259 MPV 10.1 Immature Gran % 0.6 Neutrophils % 82.6 Lymphocytes % 8.7 Monocytes % 7.2 Eosinophils % 0.5 Basophils % 0.4 Nucleated RBC % 1 Absolute Neutrophils 10.61 H Absolute Lymphocytes 1.12 L Absolute Monocytes 0.92 H Absolute Eosinophils 0.06 Absolute Basophils 0.05 RBC Morphology See below Polychromasia Present Basophilic Stippling Present Anisocytosis 1+ Macrocytosis 2+ PT INR Sodium 135 L Potassium 3.6 Chloride 100 Carbon Dioxide 27.0 Anion Gap 8.0 BUN 10 Creatinine 0.76 Estimated GFR/1.73 m2 >= 60.00 Glucose 113 H Calcium 8.4 L Magnesium 1.5 L Total Bilirubin 1.4 H AST 74 H ALT 27 Alkaline Phosphatase 178 H Ammonia Troponin I < 0.05 NT-Pro-B Natriuret Pep 1372 H Total Protein 8.0 Albumin 2.1 L COVID-19 PCR Nasopharyn COVID-19 PCR Ref Test Perform Site 06/15/20 06/15/20 06/15/20 13:00 16:08 16:08 WBC RBC Hgb Hct MCV MCH MCHC RDW Plt Count MPV Immature Gran % Neutrophils % Lymphocytes % Monocytes % Eosinophils % Basophils % Nucleated RBC % Absolute Neutrophils Absolute Lymphocytes Absolute Monocytes Absolute Eosinophils Absolute Basophils RBC Morphology Polychromasia Basophilic Stippling Anisocytosis Macrocytosis PT 13.8 H INR 1.4 H Sodium Potassium Chloride Carbon Dioxide Anion Gap BUN Creatinine Estimated GFR/1.73 m2 Glucose Calcium Magnesium Total Bilirubin AST ALT Alkaline Phosphatase Ammonia Troponin I < 0.05 NT-Pro-B Natriuret Pep Total Protein Albumin COVID-19 PCR Negative Nasopharyn COVID-19 PCR Not Applicable Ref Test Perform Site [facility] 06/16/20 06/16/20 06/16/20 06:58 06:58 06:58 WBC 9.30 RBC 2.92 L Hgb 10.5 L Hct 30.8 L MCV 105.5 H MCH 36.0 H MCHC 34.1 RDW 17.2 H Plt Count 219 MPV 10.2 Immature Gran % Neutrophils % Lymphocytes % Monocytes % Eosinophils % Basophils % Nucleated RBC % Absolute Neutrophils Absolute Lymphocytes Absolute Monocytes Absolute Eosinophils Absolute Basophils RBC Morphology Polychromasia Basophilic Stippling Anisocytosis Macrocytosis PT INR Sodium 137 Potassium 3.4 L Chloride 102 Carbon Dioxide 27.5 Anion Gap 7.5 BUN 11 Creatinine 0.61 Estimated GFR/1.73 m2 >= 60.00 Glucose 96 Calcium 7.8 L Magnesium 1.6 L Total Bilirubin 1.0 AST 55 H ALT 22 Alkaline Phosphatase 132 H Ammonia 20 Troponin I < 0.05 NT-Pro-B Natriuret Pep Total Protein 6.3 L Albumin 1.6 L COVID-19 PCR Nasopharyn COVID-19 PCR Ref Test Perform Site
--- NOTE | 2020-06-16 15:29 | PTTR_ITS ---
Date of service: 06/16/20 Time of Service: 15:29 PT Notes Visit Reasons: Congestive heart failure Inpatient Physical Therapy Treatment Note [facility] Date: 06/16/2020 PRECAUTIONS: Fall SUBJECTIVE: Vesta is hesitant, but agreeable to participating in PT. She reports feeling tired this afternoon. OBJECTIVE: Patient appeared fearful of falling with standing and gait training. PAIN: No c/o pain BED MOBILITY/TRANSFERS Sit-supine: S with HOB flat Sit-stand: CGA x2 Stand-sit: CGA GAIT Assistive Device: FWW Weight bearing: Full Assist: CGA x2 Distance: 20' Deviation: Short step length, tactile cueing to hold FWW instead of PET NUTRITION SPECIALIST x2 THEREX: Patient was instructed in several LE strengthening exercises, while in a supine position, as per flow sheet. Patient c/o increased fatigue with exercise completion. ASSESSMENT: Patient tolerated session well, with c/o increased fatigue with ther ex completion. She was able to tolerate a progression in gait distance with FWW support and CGAx2 for patient comfort. She would benefit from continued gait and transfer training, as well as global strengthening for progression toward baseline level of function with least resistive device. PLAN: Continue with global strengthening and gait and transfer training TREATMENT CODE/TIME: 25 minutes; 03621, [id number]
[2020-06-16 16:12] VITALS: BP 108/71; PULSE 51; RESP 18; TEMP 36.6; O2SAT 95
--- NOTE | 2020-06-16 16:21 | W.NUTCONSULT ---
Date of service: 06/16/20 Time of Service: 16:00 Nutritional Consult ASSESSMENT: 70 y/o female w/ hx ETOH abuse. She presents w cirrhosis of liver and PCM as evidenced by ABN labs: Elevated LFT'S, total pro 6.3, Alb 1.6, Low K+, Ca, Mg. She has moderate ascites and is at risk for fluid imbalance. Current BMI is wnl at 23.3 and she is 114% IBW which may be r/t fluid retention. On B-1 to help w/ depleted micro-nutrients from hx ETOH. She is on 2g Na diet reg texture which she states she has been eating ~ 50-75% at meals. We discussed a supplement shake @ 10a and 2p to help max intake and increase Pro. She agreed to give it a try. Enc intake as violeta. NUTRITIONAL DIAGNOSIS: Protein calorie malnutrition as evidenced by ABN labs, Hx ETOH abuse and poor nutrition. INTERVENTION: Recommend:Ensure 237 ml BID @ 10a and 2p. Record amount consumed. Kitchen is aware. Recommend: MVI per MD approval Recommend: Active Lx Pro supplement 30 ml BID can be mixed w/ 30 ml H2O. To provide 30g/pro/day MONITORING AND EVALUATION: Monitor labs, weights, PO intake. Time Spent in Nutritional Counseling and Treatment: 15 minutes
[2020-06-16] MEDS: Magnesium Chloride 64 MG TABCR PO (20:09)
[2020-06-16 23:39] VITALS: BP 100/68; PULSE 92; RESP 18; TEMP 36.2; O2SAT 95
[2020-06-17] VITALS (7 sets, daily range): BP systolic 97–115; BP diastolic 66–80; PULSE 94–110; RESP 16–19; TEMP 36.5–37.3; O2SAT 94–97
[2020-06-17] MEDS: Heparin 5,000 UNITS/ML VIAL 5000 UNITS SC ×2 (05:28→17:43)
[2020-06-17] MEDS: Budesonide/Formoterol 160/4.5 6 GM 60 PUFF INH IH ×2 (07:54→19:51)
[2020-06-17] MEDS: Spironolactone 50 MG TAB 100 MG PO (08:07)
[2020-06-17] MEDS: Furosemide 20 MG TAB 40 MG PO (08:08)
[2020-06-17] MEDS: Magnesium Chloride 64 MG TABCR PO ×2 (08:08→19:54)
[2020-06-17] MEDS: Omeprazole 20 MG CAPCR PO (08:08)
[2020-06-17 08:11] LABS: Abs Immature Grans 0.03 10^3/uL (0.0-0.06); Absolute Basophil Count 0.04 10^3/uL (0.0-0.2); Absolute Eosinophil Count 0.11 10^3/uL (0.0-0.7); Absolute Monocyte Count 1.01 10^3/uL (0.1-0.8); Absolute Neutrophil Count 5.52 10^3/uL (1.2-6.7); Basophils % 0.5; Eosinophils % 1.3; HCT 28.3 % (36.0-46.0); HGB 9.7 g/dL (11.2-15.7); Immature Grans % 0.4; Lymphocytes % 21.2; MCH 36.1 pg (27.0-33.0); MCHC 34.3 % (32.0-36.0); MCV 105.2 fL (80-95); MPV 10.4 fL (8.0-11.0); Monocytes % 11.9; Neutrophils % 64.7; Nucleated RBC 0 %; Platelet Count 236 10^3/uL (130-400); RBC 2.69 10^6/uL (3.93-5.22); RDW 18.1 % (11.7-14.6); RDW-SD 68.8 fL; WBC 8.51 10^3/uL (4.4-10.8)
[2020-06-17 08:25] LABS: ALT 19 U/L (14-59); AST 51 U/L (15-37); Albumin 1.5 g/dL (3.4-5.0); Alkaline Phosphatase 132 U/L (46-116); Anion Gap 7.4 mmol/L (3-11); BUN 10 mg/dL (7-18); CO2 28.6 mmol/L (21.0-32.0); CREATININE 0.75 mg/dL (0.55-1.02); Calcium 7.8 mg/dL (8.5-10.1); Chloride 101 mmol/L (98-107); Glucose 105 mg/dL (74-106); Magnesium 1.5 mg/dL (1.8-2.4); Potassium 3.1 mmol/L (3.5-5.1); Sodium 137 mmol/L (136-145)
[2020-06-17 09:06] LABS: Anisocytosis 1+; Diff Comment RBC Morph Reviewed; Hypochromasia 1+; Macrocytosis 2+; Target Cells 2+
[2020-06-17] MEDS: Potassium Chloride 20 MEQ TABCR PO (11:05)
[2020-06-17] MEDS: Magnesium Oxide 400 MG TAB PO (11:05)
--- NOTE | 2020-06-17 11:19 | PT.INTREAT ---
PT Notes Visit Reasons: Congestive heart failure Inpatient Physical Therapy Treatment Note [facility] Date: 06/17/20 PRECAUTIONS: Standard SUBJECTIVE: Pt reports that she is tired today. OBJECTIVE: Sit-stand: CGA/minx2 Stand-sit: CGA/Minx2 GAIT Assistive Device: Fww Weight bearing: Full Assist: Min assistx2 Distance: Standing and marching in place to F THEREX: Pt completed UE and LE strengthening ther ex as per flow sheet. ASSESSMENT: Pt was very apprehensive during her session today. Pt did not feel confident with just one assist and wanted another nurse to help and did require vc's with her sit to stand transfers. PLAN: Cont to progress as per violeta as per PT POC. TREATMENT CODE/TIME: 10:30-11 (30) BINTA ZAMORA
--- NOTE | 2020-06-17 14:02 | W.PM.PROGNOT ---
Date of Service Date of service: 06/17/20 Time of Service: 14:02 Assessment and Plan Assessment and plan (1) Cirrhosis of liver: Status: Acute Assessment and plan: Related to ETOH abuse. Moderate ascites noted. She was noted to have some confusion during hospitalization, she appears clear today. She was intiated on aldactone 100 mg and lasix 40 mg during this hospitalization. Albumin low at 1.5 today, she was seen by still operator brandy who recommended MVI and supplement to increase protein. She appears to be nearly euvolemic, continue current regimen. (2) Ambulatory dysfunction: Status: Acute Assessment and plan: Severe will multiple recent falls. Likely ataxia from ETOH use. Continue falls precautions, PT/OT, PT recommends SNF for rehab prior to returning home. (3) CHF (congestive heart failure): Status: Chronic Assessment and plan: Echo shows EF 55-60%. Continue lasix and spironolactone. Continue to monitor I&O, daily weights, likely secondary to cirrhosis large pleural effusion likely secondary to ascities (4) Alcohol abuse: Status: Suspected Assessment and plan: CIWA scale while hospitalized. Denied excessive ETOH use on admission. CIWA score 0. Continue ativan prn per alcohol withdarwal protocol. (5) Esophageal reflux: Status: Chronic Assessment and plan: continue omeprazole (6) Hypertension: Status: Chronic Assessment and plan: Metoprolol stopped due to hypotension with diuresis. Midly tachycardic at present, HR 99-103. Resume BB at decreased dose and monitor. (7) Severe protein-calorie malnutrition: Status: Acute Assessment and plan: Sales Ledger Clerk consulted as above. Continue increased protein intake via supplements. (8) DVT prophylaxis: Status: Acute Assessment and plan: Subcutaneous heparin, SCDs, teds. (9) Discharge planning issues: Status: Acute Assessment and plan: She is a full code. She will likely need rehab at a half-way facility prior to returning home. PT recommends rehab. This case was discussed with Dr. Villela who is in agreement. Subjective Subjective Interval history since last seen: Mrs. Gomez reports that she is feeling better, she is experiencing shortness of breath with activity however it is improved from admission. She denies a cough or wheezing. The edema in her lower extremities has improved. She is eating about half of her meals. She is being monitored for alcohol withdrawal, she has scored 0 so far. She denies anxiety, nausea and vomiting, headache, tremors, hallucinations. Her , Luis Manuel is present. He is asking about discharge plans. Luis Manuel feels that she does need more physical therapy to gain strength before she comes home. PT has recommended placement at a half-way facility for rehab with continued PT services in order to progress mobility level, strength and balance in preparation for safe discharge home. Exam Narrative Exam Narrative: General: Elderly female, chronically ill-appearing, sitting up in the recliner, feet elevated, awake and alert, answers questions appropriately. HEENT: Normocephalic, atraumatic, skin is pale, pupils equal and round, mucous membranes moist. Neck: Supple. Cardiovascular: Heart has regular rate and rhythm, mildly tachycardic. Respiratory: Respirations appear even and unlabored, no coughing during exam, lung sounds with rales to right base. GI: Abdomen is distended, firm due to ascites, nontender on palpation, bowel sounds x4 quadrants. Extremities: Right ankle with trace edema, no edema to LLE. Objective Last Vital Signs Temp 37.0 C 06/17/20 11:28 Pulse 103 H 06/17/20 11:28 Resp 18 06/17/20 11:28 BP 101/72 06/17/20 11:28 Pulse Ox 97 06/17/20 11:28 Laboratory Results - last 24 hr 06/17/20 06/17/20 07:30 07:30 WBC 8.51 RBC 2.69 L Hgb 9.7 L Hct 28.3 L MCV 105.2 H MCH 36.1 H MCHC 34.3 RDW 18.1 H Plt Count 236 MPV 10.4 Immature Gran % 0.4 Neutrophils % 64.7 Lymphocytes % 21.2 Monocytes % 11.9 Eosinophils % 1.3 Basophils % 0.5 Nucleated RBC % 0 Absolute Neutrophils 5.52 Absolute Lymphocytes 1.80 Absolute Monocytes 1.01 H Absolute Eosinophils 0.11 Absolute Basophils 0.04 RBC Morphology See below Hypochromasia 1+ Anisocytosis 1+ Macrocytosis 2+ Sodium 137 Potassium 3.1 L Chloride 101 Carbon Dioxide 28.6 Anion Gap 7.4 BUN 10 Creatinine 0.75 Estimated GFR/1.73 m2 >= 60.00 Glucose 105 Calcium 7.8 L Magnesium 1.5 L Total Bilirubin 1.0 AST 51 H ALT 19 Alkaline Phosphatase 132 H Total Protein 6.0 L Albumin 1.5 L
[2020-06-17] MEDS: Thiamine 100 MG TAB PO ×2 (14:07→19:54)
--- NOTE | 2020-06-17 18:00 | CMPROGNOTE_ITS ---
- If Service Date Differs Date of service: 06/17/20 Time of Service: 18:00 Care Management Progress Note S/O: Vesta was lying in bed when CM met with her. Her s/o Luis Manuel was in the room. Vesta stated that she was feeling ok today. Luis Manuel stated that they had been given a lot of good information today regarding Vesta's plan of care. CM discussed discharge planning with them. Per report, PT is recommending SNF for short term rehab for to gain strength prior to returning home. Vesta stated th at she is agreeable to this. 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 After discussing options, Vesta chose to have a referral sent to [facility], which is closest to home. CM will send a referral, which will be reviewed on Friday. CM will continue to follow. A: Vesta is a 70 year old female admitted to [facility] on 06/15/20 with CHF. P: Anticipate Vesta will go to short term rehab prior to returning home. She has agreed to sending a referral to [facility]. She will likely be transported via w/c van when ready. CM will continue to follow.
[2020-06-18 04:50] VITALS: BP 123/63; PULSE 109; RESP 16; TEMP 37; O2SAT 95
[2020-06-18] MEDS: Heparin 5,000 UNITS/ML VIAL 5000 UNITS SC ×2 (05:37→17:32)
[2020-06-18 07:25] VITALS: BP 109/76; PULSE 107; RESP 18; TEMP 36.7; O2SAT 94
[2020-06-18 08:08] LABS: HCT 29.4 % (36.0-46.0); HGB 10.4 g/dL (11.2-15.7); MCH 36.9 pg (27.0-33.0); MCHC 35.4 % (32.0-36.0); MCV 104.3 fL (80-95); MPV 10.7 fL (8.0-11.0); Platelet Count 238 10^3/uL (130-400); RBC 2.82 10^6/uL (3.93-5.22); RDW 18.1 % (11.7-14.6); RDW-SD 69.2 fL
[2020-06-18] MEDS: Budesonide/Formoterol 160/4.5 6 GM 60 PUFF INH IH ×2 (08:17→20:16)
[2020-06-18 08:19] LABS: BUN 10 mg/dL (7-18); CREATININE 0.72 mg/dL (0.55-1.02); Calcium 8.3 mg/dL (8.5-10.1); Chloride 101 mmol/L (98-107); Glucose 109 mg/dL (74-106); Magnesium 1.4 mg/dL (1.8-2.4); Potassium 3.7 mmol/L (3.5-5.1); Sodium 135 mmol/L (136-145)
[2020-06-18] MEDS: Spironolactone 50 MG TAB 100 MG PO (08:36)
[2020-06-18] MEDS: Furosemide 20 MG TAB 40 MG PO (08:37)
[2020-06-18] MEDS: Magnesium Chloride 64 MG TABCR PO ×2 (08:37→20:15)
[2020-06-18] MEDS: Metoprolol 12.5 MG TAB PO (08:37)
[2020-06-18] MEDS: Magnesium Oxide 400 MG TAB PO (08:37)
[2020-06-18] MEDS: Potassium Chloride 20 MEQ TABCR PO (08:38)
[2020-06-18] MEDS: Thiamine 100 MG TAB PO ×3 (08:38→20:15)
[2020-06-18] MEDS: Omeprazole 20 MG CAPCR PO (08:38)
[2020-06-18] MEDS: Magnesium Oxide 400 MG TAB 800 MG PO (09:50)
--- NOTE | 2020-06-18 11:08 | PT.INTREAT ---
PT Notes Visit Reasons: Congestive heart failure Inpatient Physical Therapy Treatment Note [facility] Date: 06/18/20 PRECAUTIONS: Standard SUBJECTIVE: No new complaints. OBJECTIVE: Sit-stand: Minx2 Stand-sit: Minx2 GAIT Assistive Device: FWW Weight bearing: Full Assist: CGAx2 Distance: Standing endurance and marching in place to F approx 1 min. THEREX: Seated UE and LE strengthening ther ex as per flow sheet. ASSESSMENT: Pt cont to be fearful of falling and would like 2 people with transfers. I feel pt strength is there it's more of a confidence issue. With standing she does fatigue fairly quickly though. PLAN: [] TREATMENT CODE/TIME: 10-:25 (25) BINTA ZAMORA
--- NOTE | 2020-06-18 11:16 | W.PM.PROGNOT ---
Date of Service Date of service: 06/18/20 Time of Service: 11:16 Assessment and Plan Assessment and plan (1) Cirrhosis of liver: Start date: 06/18/20 Start time: 11:17 Status: Acute Assessment and plan: Related to ETOH abuse. Moderate ascites noted. She was noted to have some confusion during hospitalization, she appears clear today. She was intiated on aldactone 100 mg and lasix 40 mg during this hospitalization. Albumin low at 1.5 today, she was seen by management tech who recommended MVI and supplement to increase protein. She appears to be euvolemic, continue current regimen. Qualifiers: Hepatic cirrhosis type: alcoholic cirrhosis Ascites presence: with ascites Qualified Code(s): K70.31 - Alcoholic cirrhosis of liver with ascites (2) Ambulatory dysfunction: Start date: 06/18/20 Start time: 11:18 Status: Acute Assessment and plan: Severe with multiple recent falls. Likely ataxia from ETOH use. Continue falls precautions, PT/OT, PT recommends SNF for rehab prior to returning home. (3) CHF (congestive heart failure): Start date: 06/18/20 Start time: 11:19 Status: Chronic Assessment and plan: Echo shows EF 55-60%. Continue lasix and spironolactone. Continue to monitor I&O, daily weights, likely secondary to cirrhosis large pleural effusion likely secondary to ascities Appears to be at dry wt. Qualifiers: Heart failure type: unspecified Heart failure chronicity: chronic Qualified Code(s): I50.9 - Heart failure, unspecified (4) Alcohol abuse: Start date: 06/18/20 Start time: 11:19 Status: Suspected Assessment and plan: CIWA scale while hospitalized. Denied excessive ETOH use on admission. CIWA score 0. Continue ativan prn per alcohol withdarwal protocol. (5) Esophageal reflux: Start date: 06/18/20 Start time: 11:19 Status: Chronic Assessment and plan: continue omeprazole Qualifiers: Esophagitis presence: without esophagitis Qualified Code(s): K21.9 - Gastro-esophageal reflux disease without esophagitis (6) Hypertension: Start date: 06/18/20 Start time: 11:19 Status: Chronic Assessment and plan: Metoprolol stopped due to hypotension with diuresis. Midly tachycardic at present, HR 99-109. Resume BB at decreased dose and monitor. Will monitor for overdiuresis. will give small amount fluid if continues to be tachy Qualifiers: Hypertension type: essential hypertension Qualified Code(s): I10 - Essential (primary) hypertension (7) Severe protein-calorie malnutrition: Start date: 06/18/20 Start time: Status: Acute Assessment and plan: Bellhop Service Captain consulted as above. Continue increased protein intake via supplements. (8) DVT prophylaxis: Start date: 06/18/20 Start time: Status: Acute Assessment and plan: Subcutaneous heparin, SCDs, teds. (9) Discharge planning issues: Start date: 06/18/20 Start time: : Status: Acute Assessment and plan: She is a full code. She will likely need rehab at a [place] [facility] prior to returning home. PT recommends rehab. This case was discussed with Dr. Villela who is in agreement. Subjective Subjective Patient reports: no new complaints Interval history since last seen: Sitting up in chair working with PT at this time. She appears in good spirits. She is agreeable to rehab. Exam Narrative Exam Narrative: General: Elderly female, chronically ill-appearing, sitting up in the recliner, feet elevated, awake and alert, answers questions appropriately. HEENT: Normocephalic, atraumatic, skin is pale, pupils equal and round, mucous membranes moist. Neck: Supple. Cardiovascular: Heart has regular rate and rhythm, mildly tachycardic. Respiratory: Respirations appear even and unlabored, no coughing during exam, lung sounds with rales to right base. GI: Abdomen is distended, firm due to ascites, nontender on palpation, bowel sounds x4 quadrants. Extremities: Right ankle with trace edema, no edema to LLE. Objective Last Vital Signs Temp 36.7 C 06/18/20 07:25 Pulse 107 H 06/18/20 07:25 Resp 18 06/18/20 07:25 BP 109/76 06/18/20 07:25 Pulse Ox 94 06/18/20 07:25 Laboratory Results - last 24 hr 06/18/20 06/18/20 07:36 07:39 WBC 10.80 RBC 2.82 L Hgb 10.4 L Hct 29.4 L MCV 104.3 H MCH 36.9 H MCHC 35.4 RDW 18.1 H Plt Count 238 MPV 10.7 Sodium 135 L Potassium 3.7 Chloride 101 Carbon Dioxide 29.0 Anion Gap 5.0 BUN 10 Creatinine 0.72 Estimated GFR/1.73 m2 >= 60.00 Glucose 109 H Calcium 8.3 L Magnesium 1.4 L
[2020-06-18 11:20] VITALS: BP 108/71; PULSE 87; RESP 17; TEMP 36.5; O2SAT 96
[2020-06-18 15:19] VITALS: BP 103/77; PULSE 90; RESP 16; TEMP 37.6; O2SAT 97
--- NOTE | 2020-06-18 15:44 | PDOC.CMPRO ---
- If Service Date Differs Date of service: 06/18/20 Time of Service: 15:44 Care Management Progress Note S/O: Vesta was sitting up in her chair when CM met with her. Her , Luis Manuel was visiting. She reported that she didn't get good sleep last night, so she wasn't feeling well today. CM discussed the discharge plan, stated that the referral was sent to [facility], which will be reviewed tomorrow by their admission department. CM will continue to follow. A: Vesta is a 70 year old female admitted to [facility] on 06/15/20 with CHF. P: Anticipate Vesta will go to short term rehab prior to returning home. She has agreed to sending a referral to [facility]. She will likely be transported via w/c van when ready. CM will continue to follow.
[2020-06-18 19:15] VITALS: BP 101/74; PULSE 96; RESP 18; TEMP 37.6; O2SAT 97
[2020-06-18 23:27] VITALS: BP 110/68; PULSE 88; RESP 19; TEMP 37.7; O2SAT 97
[2020-06-19] VITALS (7 sets, daily range): BP systolic 87–119; BP diastolic 54–77; PULSE 81–101; RESP 16–18; TEMP 36–37.3; O2SAT 95–98
[2020-06-19] MEDS: Heparin 5,000 UNITS/ML VIAL 5000 UNITS SC ×2 (05:31→17:38)
[2020-06-19 07:04] LABS: Vitamin D 25 Total 29.2 ng/ml (30-100)
[2020-06-19 07:23] LABS: HCT 30.9 % (36.0-46.0); HGB 10.7 g/dL (11.2-15.7); MCH 36.3 pg (27.0-33.0); MCHC 34.6 % (32.0-36.0); MCV 104.7 fL (80-95); MPV 10.3 fL (8.0-11.0); Platelet Count 224 10^3/uL (130-400); RBC 2.95 10^6/uL (3.93-5.22); RDW 18.2 % (11.7-14.6); RDW-SD 69.1 fL; WBC 12.34 10^3/uL (4.4-10.8)
[2020-06-19 07:32] LABS: Magnesium 1.3 mg/dL (1.8-2.4)
[2020-06-19] MEDS: Omeprazole 20 MG CAPCR PO (09:03)
[2020-06-19] MEDS: Magnesium Chloride 64 MG TABCR PO ×2 (09:03→20:13)
[2020-06-19] MEDS: Spironolactone 50 MG TAB 100 MG PO (09:03)
[2020-06-19] MEDS: Potassium Chloride 20 MEQ TABCR PO (09:03)
[2020-06-19] MEDS: Metoprolol 12.5 MG TAB PO (09:03)
[2020-06-19] MEDS: Magnesium Oxide 400 MG TAB PO (09:03)
[2020-06-19] MEDS: Thiamine 100 MG TAB PO ×3 (09:04→20:13)
[2020-06-19] MEDS: Furosemide 20 MG TAB 40 MG PO (09:04)
[2020-06-19] MEDS: Budesonide/Formoterol 160/4.5 6 GM 60 PUFF INH IH ×2 (09:09→20:15)
[2020-06-19] MEDS: MAGNESIUM SULFATE 4 GM/100 ML BAG IVPB (09:30)
--- NOTE | 2020-06-19 12:22 | PT.INTREAT ---
Date of service: 06/19/20 Time of Service: 12:22 PT Notes Visit Reasons: Congestive heart failure Inpatient Physical Therapy Treatment Note [facility] Date: 06/19/2020 PRECAUTIONS: Fall, fear of falling SUBJECTIVE: Vesta is hesitant, but agreeable to participating in PT. She reports I don't trust my knees that they won't give out on me while I'm walking. She acknowledges that she will require a SNF stay prior to returning to home. OBJECTIVE: PAIN: Patient states I hurt all over following gait training in a.m. BED MOBILITY/TRANSFERS Supine-sit: I with HOB flat Sit-stand: CGA Stand-sit: [facility] GAIT Assistive Device: FWW Weight bearing: Full Assist: CGA Distance: 25' + 15' in a.m.; 45' + 15' in p.m. Deviation: Patient demonstrates fearfulness with gait training, grabs/reaches for wall, decreased knee flexion, wide VAN, cueing for FWW mechanics TOILETING: Patient toileted with [facility] for transfers ASSESSMENT: Patient continues to be extremely fearful of falling with gait training. She continues to require cueing for FWW mechanics as well as demonstrates decreased knee flexion and wide VAN as compensatory movement patterns. She would benefit from continued gait and transfer training, as well as global strengthening for improved mobility and progression toward independence with functional daily tasks. PLAN: Continue with gait and transfer training as well as global strengthening TREATMENT CODE/TIME: Session 1: 35 minutes; [id number] x2 Session 2: 25 minutes; [id number] x2
--- NOTE | 2020-06-19 13:03 | PGE_ITS ---
Date of Service Date of service: 06/19/20 Time of Service: 13:03 Assessment and Plan Assessment and plan (1) Cirrhosis of liver: Start date: 06/19/20 Start time: 13:07 Status: Acute Assessment and plan: Related to ETOH abuse. Moderate ascites noted. She was noted to have some confusion during hospitalization, she appears clear today. She was intiated on aldactone 100 mg and lasix 40 mg during this hospitalization. Albumin low at 1.5 today, she was seen by ball winder who recommended MVI and supplement to increase protein. She appears to be euvolemic, continue current regimen. Qualifiers: Hepatic cirrhosis type: alcoholic cirrhosis Ascites presence: with ascites Qualified Code(s): K70.31 - Alcoholic cirrhosis of liver with ascites (2) Ambulatory dysfunction: Start date: 06/19/20 Start time: 13:08 Status: Acute Assessment and plan: Severe with multiple recent falls. Likely ataxia from ETOH use. Continue falls precautions, PT/OT, PT recommends SNF for rehab prior to returning home. (3) CHF (congestive heart failure): Start date: 06/19/20 Start time: 13:09 Status: Chronic Assessment and plan: Echo shows EF 55-60%. Continue lasix and spironolact one. Continue to monitor I&O, daily weights, likely secondary to cirrhosis large pleural effusion likely secondary to ascities Appears to be at dry wt. Qualifiers: Heart failure type: unspecified Heart failure chronicity: chronic Qualified Code(s): I50.9 - Heart failure, unspecified (4) Alcohol abuse: Start date: 06/19/20 Start time: 13:09 Status: Suspected Assessment and plan: Discontinued no signs of withdrawal (5) Esophageal reflux: Start date: 06/19/20 Start time: 13:11 Status: Chronic Assessment and plan: continue omeprazole Qualifiers: Esophagitis presence: without esophagitis Qualified Code(s): K21.9 - Gastro-esophageal reflux disease without esophagitis (6) Hypertension: Start date: 06/19/20 Start time: 13:11 Status: Chronic Assessment and plan: Normotensive, HR in 80's Qualifiers: Hypertension type: essential hypertension Qualified Code(s): I10 - Essential (primary) hypertension (7) Severe protein-calorie malnutrition: Start date: 06/19/20 Start time: 13:11 Status: Acute Assessment and plan: Players Assistant consulted as above. Continue increased protein intake via supplements. (8) DVT prophylaxis: Start date: 06/19/20 Start time: 13:11 Status: Acute Assessment and plan: Subcutaneous heparin, SCDs, teds. (9) Discharge planning issues: Start date: 06/19/20 Start time: 13:11 Status: Acute Assessment and plan: She is a full code. She will likely need rehab at a senior care facility prior to returning home. PT recommends rehab. This case was discussed with Dr. Villela who is in agreement. Subjective Subjective Patient reports: no new complaints Interval history since last seen: Continues to feel weak, which is not new. No signs of CHF. Given booklet on CHF. Exam Narrative Exam Narrative: General: Elderly female, chronically ill-appearing, sitting up in the recliner, feet elevated, awake and alert, answers questions appropriately. HEENT: Normocephalic, atraumatic, skin is pale, pupils equal and round, mucous membranes moist. Neck: Supple. Cardiovascular: Heart has regular rate and rhythm, mildly tachycardic. Respiratory: Respirations appear even and unlabored, no coughing during exam, lung sounds with rales to right base. GI: Abdomen is distended, firm due to ascites, nontender on palpation, bowel s ounds x4 quadrants. Extremities: Right ankle with trace edema, no edema to LLE. Objective Last Vital Signs Temp 37.0 C 06/19/20 11:28 Pulse 86 06/19/20 11:28 Resp 18 06/19/20 11:28 BP 119/77 06/19/20 11:28 Pulse Ox 98 06/19/20 11:28 Laboratory Results - last 24 hr 06/18/20 06/19/20 06/19/20 07:59 07:15 07:15 WBC 12.34 H RBC 2.95 L Hgb 10.7 L Hct 30.9 L MCV 104.7 H MCH 36.3 H MCHC 34.6 RDW 18.2 H Plt Count 224 MPV 10.3 Magnesium 1.3 L 25-OH Vitamin D Total 29.2 L
--- NOTE | 2020-06-20 | DI.US_ITS ---
EXAM: US ABDOMEN RENAL CLINICAL HISTORY: ascities TECHNIQUE: Ultrasound abdomen performed using standard protocol. COMPARISON: No exams were available for comparison FINDINGS: ABDOMINAL AORTA AND IVC: Visualized portions normal caliber. PANCREAS: Normal where visualized. LIVER: Nodular contour of the liver suggesting hepatic cirrhosis. Hepatopedal flow in the Portal Vei n. GALLBLADDER: No evidence of cholelithiasis. Gallbladder wall measures 4 mm in thickness. Sludge is s een within the gallbladder. No pericholecystic fluid identified. BILIARY SYSTEM: Common bile duct measures < 7 mm. No intrahepatic biliary ductal dilation. SANCHEZ'S SIGN: Negative. KIDNEYS: Kidneys are symmetric in size. No evidence of renal calculi. No evidence of hydronephrosis. No renal mass or cyst identified. SPLEEN: Not enlarged. ASCITES: Large amount of abdominal ascites. Urinary bladder: There is a Overton catheter present. Urinary bladder volume was 52 cc. IMPRESSION: 1. Findings of hepatic cirrhosis. 2. Large amount of abdominal ascites. 3. Gallbladder is contracted. Gallbladder wall thickness may be secondary to the large amount of abd ominal ascites. 4. Gallbladder sludge. No biliary ductal dilatation. DATA REPOSITORY:
[2020-06-20 02:55] VITALS: BP 90/58; PULSE 102; RESP 17; TEMP 37.2; O2SAT 95
[2020-06-20] MEDS: Heparin 5,000 UNITS/ML VIAL 5000 UNITS SC ×2 (06:05→17:13)
[2020-06-20 07:32] LABS: Magnesium 1.8 mg/dL (1.8-2.4)
[2020-06-20] MEDS: Budesonide/Formoterol 160/4.5 6 GM 60 PUFF INH IH ×2 (08:23→19:37)
[2020-06-20 08:29] VITALS: BP 113/73; PULSE 98; RESP 19; TEMP 36.7; O2SAT 97
[2020-06-20 08:40] LABS: Abs Immature Grans 0.11 10^3/uL (0.0-0.06); Absolute Eosinophil Count 0.33 10^3/uL (0.0-0.7); Absolute Lymphocyte Count 1.73 10^3/uL (1.2-3.4); Absolute Monocyte Count 1.39 10^3/uL (0.1-0.8); Basophils % 0.4; Eosinophils % 2.4; HCT 32.6 % (36.0-46.0); HGB 11.2 g/dL (11.2-15.7); Immature Grans % 0.8; Lymphocytes % 12.6; MCH 36.5 pg (27.0-33.0); MCHC 34.4 % (32.0-36.0); MCV 106.2 fL (80-95); MPV 11.4 fL (8.0-11.0); Monocytes % 10.1; Neutrophils % 73.7; Nucleated RBC 0 %; Platelet Count 240 10^3/uL (130-400); RBC 3.07 10^6/uL (3.93-5.22); RDW 18.6 % (11.7-14.6); RDW-SD 71.9 fL; WBC 13.73 10^3/uL (4.4-10.8)
[2020-06-20] MEDS: Thiamine 100 MG TAB PO ×2 (08:41→19:34)
[2020-06-20] MEDS: Magnesium Chloride 64 MG TABCR PO ×2 (08:42→19:34)
[2020-06-20] MEDS: Furosemide 20 MG TAB 40 MG PO (08:42)
[2020-06-20] MEDS: Spironolactone 50 MG TAB 100 MG PO (08:42)
[2020-06-20] MEDS: Metoprolol 12.5 MG TAB PO (08:42)
[2020-06-20] MEDS: Magnesium Oxide 400 MG TAB PO (08:42)
[2020-06-20] MEDS: Omeprazole 20 MG CAPCR PO (08:42)
[2020-06-20] MEDS: Potassium Chloride 20 MEQ TABCR PO (08:43)
[2020-06-20 08:50] LABS: Absolute Basophil Count 0.05 10^3/uL (0.0-0.2); Absolute Neutrophil Count 10.12 10^3/uL (1.2-6.7)
[2020-06-20 09:05] LABS: Anion Gap 5.5 mmol/L (3-11); BUN 11 mg/dL (7-18); CO2 30.5 mmol/L (21.0-32.0); CREATININE 0.86 mg/dL (0.55-1.02); Calcium 8.2 mg/dL (8.5-10.1); Chloride 98 mmol/L (98-107); Glucose 94 mg/dL (74-106); Sodium 134 mmol/L (136-145)
--- NOTE | 2020-06-20 09:10 | PDOC.CMDIS ---
LACE Index Scoring Tool - Questions: Length of Stay (in days): 4 - 6 Acuity (Admit via E.D.?): Yes E.D. Visits: 1 - Answers: Total Score: 8 Risk of Readmission: Low Risk Care Management Discharge Reason for Hospitalization: CHF Discharge Plan: Vesta will discharge to [facility] for continued rehabiliation prior to returning home. She will transport via the facility's W/C van. Patient/Family Education Needs: Review discharge instructions, discuss Ask Me Three. Services Needed at Discharge: Longterm Facility ([facility] ), Transportation (W/C Van)
--- NOTE | 2020-06-20 10:27 | CMPROGNOTE_ITS ---
- If Service Date Differs Date of service: 06/19/20 Time of Service: 11:00 Care Management Progress Note S/O: Vesta was sitting up in her chair, her SO at her bedside. The couple had questions about Vesta's diagnosis and plan of care moving forward. CM spoke with provider and RN, then provided CHF red binder to support patient education. Vesta was agreeable to transferring to [facility] when ready. CM continues to follow. A: 70 year old female admitted to [facility] 06/15/20 for CHF P: Vesta will discharge to [facility] for continued rehabiliation prior to returning home. She will transport via the facility's W/C van. CM continues to follow.
--- NOTE | 2020-06-20 10:31 | CMPROGNOTE_ITS ---
Care Management Progress Note S/O: Due to increased ascities, Vesta will continue to be monitored today per provider; anticipate she will may discharge as soon as tomorrow; Covid test will be repeated today. Vesta remains agreeable to transferring to [facility] when ready. CM continues to follow. A: 70 year old female admitted to [facility] 06/15/20 for CHF P: Vesta will discharge to [facility] for continued rehabilitation prior to returning home. She will transport via the facility's W/C van. Forms placed on chart. CM continues to follow.
[2020-06-20 10:40] LABS: ALT 34 U/L (14-59); AST 101 U/L (15-37); Albumin 1.5 g/dL (3.4-5.0); Alkaline Phosphatase 173 U/L (46-116); Bilirubin, Direct 2.69 mg/dL (0.00-0.20); Bilirubin, Total 3.9 mg/dL (0.2-1.0); Total Protein 6.6 g/dL (6.4-8.2)
[2020-06-20 11:24] LABS: Bilirubin Small (Negative); Blood Large (Negative); Clarity Cloudy (Clear); Glucose Negative (Negative); Ketones Negative (Negative); Leukocyte Esterase Negative (Negative); Nitrite Positive (Negative); Urobilinogen 0.2 EU/dL (Up TO 0.2); pH 7.5 (5-8)
--- NOTE | 2020-06-20 11:25 | PGE_ITS ---
Date of Service Date of service: 06/20/20 Time of Service: 11:25 Assessment and Plan Assessment and plan (1) Cirrhosis of liver: Start date: 06/20/20 Start time: 11:34 Status: Acute Assessment and plan: R/t ETOH, sclear icteric, skin slight yellow, bilirubin elevated, abd u/s pending. Trend bilirubin, possible surgical consult Denies pain Abd firm, nontender, Continue lasix, spirlactone. Qualifiers: Hepatic cirrhosis type: alcoholic cirrhosis Ascites presence: with ascites Qualified Code(s): K70.31 - Alcoholic cirrhosis of liver with ascites (2) UTI (urinary tract infection): Start date: 06/20/20 Start time: 11:40 Status: Suspected Assessment and plan: U/a ordered 2 days ago. Uncollected. WBC elevated, patient c/o burning sensation. Will treat with ceftriaxone. Trend cbc CRP, procal pending. Qualifiers: Urinary tract infection type: site unspecified Hematuria presence: without hematuria Qualified Code(s): N39.0 - Urinary tract infection, site not specified (3) Ambulatory dysfunction: Start date: 06/20/20 Start time: 11:45 Status: Acute Assessment and plan: Severe with multiple recent falls. Likely ataxia from ETOH use. Continue falls precautions, PT/OT, PT recommends SNF for rehab prior to returning home. (4) CHF (congestive heart failure): Start date: 06/20/20 Start time: 11:45 Status: Chronic Assessment and plan: Echo shows EF 55-60%. Continue lasix and spironolactone. Continue to monitor I&O, daily weights, likely secondary to cirrhosis large pleural effusion likely secondary to ascities, see above Appears to be at dry wt. Does not appear volume overloaded Qualifiers: Heart failure type: unspecified Heart failure chronicity: chronic Qualified Code(s): I50.9 - Heart failure, unspecified (5) Alcohol abuse: Start date: 06/20/20 Start time: 11:50 Status: Suspected Assessment and plan: Discontinued no signs of withdrawal (6) Esophageal reflux: Start date: 06/20/20 Start time: 11:50 Status: Chronic Assessment and plan: continue omeprazole Qualifiers: Esophagitis presence: without esophagitis Qualified Code(s): K21.9 - Gastro-esophageal reflux disease without esophagitis (7) Hypertension: Start date: 06/20/20 Start time: 11:52 Status: Chronic Assessment and plan: Normotensive, HR in 80's-90's Qualifiers: Hypertension type: essential hypertension Qualified Code(s): I10 - Essential (primary) hypertension (8) Severe protein-calorie malnutrition: Start date: 06/20/20 Start time: 11:52 Status: Acute Assessment and plan: Community Relations Director consulted as above. Continue increased protein intake via supplements. (9) DVT prophylaxis: Start date: 06/20/20 Start time: 11:52 Status: Acute Assessment and plan: Subcutaneous heparin, SCDs, teds. (10) Discharge planning issues: Start date: 06/20/20 Start time: 11:52 Status: Acute Assessment and plan: She is a full code. She will likely need rehab at a half-way facility prior to returning home. PT recommends rehab. This case was discussed with Dr. Villela who is in agreement. Subjective Subjective Patient reports: no new complaints Interval history since last seen: Feels the same, no pain, appears jaundice. Bilirubin elevated, LFT elevated, u/s to evaluate ascities. May need to consult surgery, u/s pending. WBC elevated, ua orderd but not collected, suspect Uti will start treatment with ceftriaxone. She denies CP, SOB, N/V/d Exam Narrative Exam Narrative: General: Elderly female, chronically ill-appearing sitting up in , awake and alert, answers questions appropriately. HEENT: Normocephalic, atraumatic, skin is pale slight jaundice, sclera icteric, pupils equal and round, mucous membranes moist. Neck: Supple. no jvd Cardiovascular: Heart has regular rate and rhythm, mildly tachycardic. Respiratory: Respirations appear even and unlabored, no coughing during exam, lung sounds with rales to right base. GI: Abdomen is distended, firm due to ascites, nontender on palpation, bowel sounds x4 quadrants. Extremities: Right ankle with trace edema, no edema to LLE. Objective Last Vital Signs Temp 36.7 C 06/20/20 08:29 Pulse 98 H 06/20/20 08:29 Resp 19 06/20/20 08:29 BP 113/73 06/20/20 08:29 Pulse Ox 97 06/20/20 08:29 Laboratory Results - last 24 hr 06/20/20 06/20/20 06/20/20 07:01 07:01 08:47 WBC 13.73 H RBC 3.07 L Hgb 11.2 Hct 32.6 L MCV 106.2 H MCH 36.5 H MCHC 34.4 RDW 18.6 H Plt Count 240 MPV 11.4 H Immature Gran % 0.8 Neutrophils % 73.7 Lymphocytes % 12.6 Monocytes % 10.1 Eosinophils % 2.4 Basophils % 0.4 Nucleated RBC % 0 Absolute Neutrophils 10.12 H Absolute Lymphocytes 1.73 Absolute Monocytes 1.39 H Absolute Eosinophils 0.33 Absolute Basophils 0.05 Sodium 134 L Potassium 4.0 Chloride 98 Carbon Dioxide 30.5 Anion Gap 5.5 BUN 11 Creatinine 0.86 Estimated GFR/1.73 m2 >= 60.00 Glucose 94 Calcium 8.2 L Magnesium 1.8 Total Bilirubin 3.9 H Conjugated Bilirubin 2.69 H AST 101 H ALT 34 Alkaline Phosphatase 173 H Total Protein 6.6 Albumin 1.5 L Urine Color Cancelled Urine Clarity Cancelled Urine pH Cancelled Ur Specific [place] Cancelled Urine Protein Cancelled Urine Ketones Cancelled Urine Blood Cancelled Urine Nitrite Cancelled Urine Bilirubin Cancelled Urine Urobilinogen Cancelled Ur Leukocyte Esterase Cancelled Urine Glucose Cancelled
[2020-06-20 11:34] LABS: Bacteria Many HPF (Negative); C & S Indicated? C&S Done As Ordered
[2020-06-20 11:57] LABS: RBC >50 HPF (0-2)
--- NOTE | 2020-06-20 11:57 | PT.INTREAT ---
Date of service: 06/20/20 Time of Service: 11:57 PT Notes Visit Reasons: Congestive heart failure Inpatient Physical Therapy Treatment Note [facility] Date: 06/20/2020 PRECAUTIONS: Fall, fear of falling SUBJECTIVE: Vesta is hesitant, but agreeable to participating in PT. Her significant other, Luis Manuel, is present during treatment session and states that he feels she is doing much better than she has been over the past several days. OBJECTIVE: PAIN: Patient reports feeling sore from Overton catheter removal and insertion BED MOBILITY/TRANSFERS Supine-sit: I with HOB flat Sit-stand: SBA from bed surface in a.m.; SBA from recliner surface in p.m. (performed x4 in p.m.) Stand-sit: SBA to recliner surface in a.m., (performed x4 in p.m.) GAIT Assistive Device: FWW Weight bearing: Full Assist: CGA Distance: 60' in a.m.; 65' in p.m. Deviation: Grabs for therapist x1, decreased knee flexion, wide VAN in both a.m. and p.m. THEREX: Patient was instructed in several LE strengthening exercises, in a standing position, as per flow sheet. Patient requires visual and verbal instruction for proper exercise performance. She requires FWW and CGA x2 for safety and patient comfort due to fear of falling. ASSESSMENT: Patient demonstrates decreased fear of falling with gait training today versus previous sessions. She continues to demonstrate decreased knee flexion and wide VAN as compensatory movement patterns. She would benefit from continued gait and transfer training, as well as global strengthening for improved mobility and progression toward independence with functional daily tasks. PLAN: Continue with gait and transfer training as well as global strengthening TREATMENT CODE/TIME: Session 1: 25 minutes; 28209 x2 Session 2: 30 minutes; [id number], [id number]
[2020-06-20 12:03] VITALS: BP 100/68; PULSE 83; RESP 19; TEMP 36.8; O2SAT 97
[2020-06-20 12:20] LABS: Procalcitonin 0.4 ng/mL
[2020-06-20] MEDS: Normal Saline Flush 10 ML SYR IVP (13:04)
[2020-06-20] MEDS: cefTRIAXone 1 GM/50 ML BAG IVPB (13:04)
[2020-06-20 14:10] LABS: Ammonia < 10 umol/L (11-32)
[2020-06-20 14:11] LABS: INR 1.4 (0.9-1.1); Prothrombin Time 13.7 sec (9.3-11.0)
--- NOTE | 2020-06-20 14:38 | CHAPLAIN ---
Vesta was sitting up in her chair visiting with her SO when I stopped in. Vesta said she was involved in the [facility] [employer] and her SO said she was Very involved in the [employer] when he lived in [place] for many years. He seems to be a strong support for Vesta. They are waiting to hear if Vesta will be [facility] tomorrow for further PT.
[2020-06-20 14:59] LABS: C-Reactive Protein 3.26 mg/dL (0.0-0.3)
[2020-06-20 16:10] VITALS: BP 99/63; PULSE 86; RESP 17; TEMP 36.6; O2SAT 97
--- NOTE | 2020-06-20 16:47 | PHA.REVIEW ---
Pharmacy Admission Review - Admission Clinical Review (Last Reviewed 06/15/20 @ 12:25 by Stephany Shea) Cirrhosis of liver (Acute) Severe protein-calorie malnutrition (Acute) Ambulatory dysfunction (Acute) Ascites (Acute) Discharge planning issues (Acute) DVT prophylaxis (Acute) diphenhydramine Adverse Reaction (Unknown, Verified 06/15/20 12:13) INTOLERANT Height 5 ft 3 in Weight 58 kg - Renal Dosing Renal Dosing: BUN 11 mg/dL (7-18) 06/20/20 07:01 Creatinine 0.86 mg/dL (0.55-1.02) 06/20/20 07:01 Medications needing adjustments: Reviewed (crcl ~50ml/min) - Anticoagulation Anticoagulation: Hgb 11.2 g/dL (11.2-15.7) 06/20/20 07:01 Hct 32.6 % (36.0-46.0) L 06/20/20 07:01 Plt Count 240 10^3/uL (130-400) 06/20/20 07:01 INR 1.4 (0.9-1.1) H 06/20/20 13:50 Creatinine 0.86 mg/dL (0.55-1.02) 06/20/20 07:01 DVT Prohphylaxis: Reviewed Medications: Heparin - Relevant Labs Sodium 134 mmol/L (136-145) L 06/20/20 07:01 Potassium 4.0 mmol/L (3.5-5.1) 06/20/20 07:01 Chloride 98 mmol/L (98-107) 06/20/20 07:01 Magnesium 1.8 mg/dL (1.8-2.4) 06/20/20 07:01 C-Reactive Protein 3.26 mg/dL (0.0-0.3) H 06/20/20 07:01 - DM Control DM Control: Glucose 94 mg/dL (74-106) 06/20/20 07:01 Insulin Dosing: N/A - Heart Failure/OH Heart Failure/OH: Troponin I < 0.05 ng/mL (<0.06) 06/16/20 06:58 NT-Pro-B Natriuret Pep 1372 pg/mL (<300) H 06/15/20 13:00 EF%, KAM's, B-Blockers, Diuretics: Reviewed (new diagnosis, 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 paracentesis scheduled for tomorrow
[2020-06-20 17:33] LABS: Total Protein 7.4 g/dL (6.4-8.2)
[2020-06-20 19:50] VITALS: BP 92/60; PULSE 91; RESP 17; TEMP 36.6; O2SAT 95
[2020-06-20 23:47] VITALS: BP 97/61; PULSE 91; RESP 17; TEMP 36.8; O2SAT 96
[2020-06-21] VITALS (7 sets, daily range): BP systolic 92–112; BP diastolic 58–72; PULSE 91–105; RESP 16–19; TEMP 36.1–37.3; O2SAT 94–99
[2020-06-21] MEDS: Heparin 5,000 UNITS/ML VIAL 5000 UNITS SC ×2 (05:22→18:08)
[2020-06-21 07:16] LABS: Abs Immature Grans 0.08 10^3/uL (0.0-0.06); Absolute Basophil Count 0.06 10^3/uL (0.0-0.2); Absolute Lymphocyte Count 1.47 10^3/uL (1.2-3.4); Absolute Monocyte Count 1.24 10^3/uL (0.1-0.8); Absolute Neutrophil Count 8.22 10^3/uL (1.2-6.7); Basophils % 0.5; Eosinophils % 2.6; HCT 28.4 % (36.0-46.0); HGB 9.9 g/dL (11.2-15.7); Immature Grans % 0.7; Lymphocytes % 12.9; MCH 36.3 pg (27.0-33.0); MCHC 34.9 % (32.0-36.0); MPV 10.5 fL (8.0-11.0); Monocytes % 10.9; Neutrophils % 72.4; Nucleated RBC 0 %; Platelet Count 260 10^3/uL (130-400); RBC 2.73 10^6/uL (3.93-5.22); RDW 18.5 % (11.7-14.6); RDW-SD 69.7 fL; WBC 11.36 10^3/uL (4.4-10.8)
--- NOTE | 2020-06-21 07:28 | W.SURGCON ---
Date of service: 06/21/20 Time of Service: 12:30 Assessment and Plan Assessment and plan (1) Ascites: Status: Acute Assessment and plan: 70 year old female diagnosed with alcoholic cirrhosis. Spend 30 minutes discussing her diagnoses of cirrhosis, importance of alcohol abstinence, increased protein intake. Questions answered regarding what cirrhosis is, why there is ascitis, what bilirubin is and treatment of cirrhosis. We reviewed the procedure of a paracenthesis as well as potential complications. I also reviewed the fact that unless she starts to eat more protein and stopps drinking her ascitis will not get controlled. Plan: Paracenthesis at the bedside Risks, benefits and complications were reviewed. Complications include but are not limited to bleeding, infection, injury to underlying bowel, chronic leak from the puncture site and hypotension. Questions were answered to her satisfaction and she wished to proceed. NO guarantees were given or implied. Qualifiers: Ascites type: due to alcoholic cirrhosis Qualified Code(s): K70.31 - Alcoholic cirrhosis of liver with ascites (2) Cirrhosis of liver: Status: Acute Qualifiers: Hepatic cirrhosis type: alcoholic cirrhosis Ascites presence: with ascites Qualified Code(s): K70.31 - Alcoholic cirrhosis of liver with ascites History of Present Illness History of Present Illness Chief Complaint: Ascitis, new diagnoses of cirrhosis Narrative: This is a 70-year-old female presented to the ED with chief complaint of generalized weakness which had been ongoing for one week prior to admission on 06/15/2020. EMS reports that they found her sitting on the floor alert and oriented complaining of weakness her significant other was unable to get her up off the floor. Patient denies fall today but does report a fall yesterday and has had increasingly frequent falls. She does have a history of asthma, depression, alcohol abuse, hypertension, depression. She was alert and oriented x4 upon arrival to the ER, not complaining of any pain anywhere. She was diagnosed with CHF and admitted for Lasix. Yesterday 06/20/2020 patient was noted to be jaundiced and her abdomen was more distended. Her WBC count was also noted to be slightly elevated. US of her abdomen was done which showed ascitis and cirrhosis of the liver. GI was contacted at [facility] and they recommended Paracenthesis with fluid to be sent for Gram stain, Cultures, Albumin, protein, cell count and SAAG. I was consulted for a Parasenthesis Consults Consult date: 06/20/20 Requesting physician: Marybeth Garzon Review of Systems Constitutional Constitutional: Denies fever(s), Denies headache(s) and Reports weakness Eyes Eyes: Denies change in vision ENT Ears, Nose, Mouth, and Throat: Denies change in voice, Denies headache(s) and Denies hoarseness Cardiovascular Cardiovascular: Denies chest pain, Denies chest pain at rest, Denies irregular heart rhythm, Denies palpitations and Denies dyspnea Respiratory Respiratory: Denies cough and Denies dyspnea Gastrointestinal Gastrointestinal: Reports as per HPI, Denies dyspepsia and Denies heartburn Genitourinary Genitourinary: Reports system reviewed and no additional complaints, except as documented Musculoskeletal Musculoskeletal: Reports system reviewed and no additional complaints, except as documented Neurologic Neurologic: Denies headache(s) and Reports weakness Psychiatric Psychiatric: Reports system reviewed and no additional complaints, except as documented Endocrine Endocrine: Denies palpitations [facility] Medical History Alcohol abuse (06/11/11) macrocytosis Allergic rhinitis Ankle fracture (03/28/06) Impacted cerumen of both ears Family History Mother Essential hypertension Heart disease Father Lung cancer Brother No problems noted. Sister Essential hypertension Depression Son No problems noted. Son No problems noted. Son No problems noted. Daughter No problems noted. Daughter No problems noted. Social History Smoking/Tobacco Use Status: Never Second Hand Exposure: Yes Alcohol Intake: current Alcohol Intake frequency: 0-2 drinks per day Alcohol type: wine Drug use: Never Substance use type: does not use Caregiver/Support person: No Household members: significant other Housing: house Communication Needs: None Do you need help understanding health information?: Rarely Pets and animals: No Sexually active: Yes Do you think of yourself as: straight/heterosexual Current gender identity: female What is your relationship status?: living with partner How often do you talk on the phone with friends or family?: three or more times per week How often do you get together with friends or relatives?: decline to answer How often do you attend sabianist or uatsdin services?: decline to answer Do you belong to any clubs or organized social groups?: no Panel score (0-1 are the most socially isolated patients): 2 What type of physical activity do you participate in: walking Duration: 15-30 minutes/day Frequency: 1-2 times per week Hudson/Anglican: Confucianist Special hudson needs: No Seatbelt use: always Drive intox or ride w/intox 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 Do you feel safe at home: Yes Do you feel safe in your relationship?: Yes Exam Const General: cooperative, no acute distress and well developed Orientation: alert and oriented x3 HENMT Head: normocephalic and atraumatic Eyes Conjunctivae: conjunctival abnormality bilaterally conjunctival icterus Pupils: PERRL Resp Effort & Inspection: normal respiratory effort Auscultation: clear to auscultation bilaterally Cardio Rate: regular rate Rhythm: regular rhythm GI Inspection: normal to inspection Palpation: soft, hepatomegaly, nontender and ascites Auscultation: normal bowel sounds Results Last Vital Signs Temp 98.4 F 06/21/20 07:16 Pulse 91 H 06/21/20 07:16 Resp 18 06/21/20 07:16 BP 92/58 L 06/21/20 07:16 Pulse Ox 97 06/21/20 07:16 Labs Result diagrams: 06/21/20 07:03 06/21/20 07:03 Labs: Laboratory Results - last 24 hr 06/20/20 06/20/20 06/20/20 07:01 07:01 07:01 WBC 13.73 H RBC 3.07 L Hgb 11.2 Hct 32.6 L MCV 106.2 H MCH 36.5 H MCHC 34.4 RDW 18.6 H Plt Count 240 MPV 11.4 H Immature Gran % 0.8 Neutrophils % 73.7 Lymphocytes % 12.6 Monocytes % 10.1 Eosinophils % 2.4 Basophils % 0.4 Nucleated RBC % 0 Absolute Neutrophils 10.12 H Absolute Lymphocytes 1.73 Absolute Monocytes 1.39 H Absolute Eosinophils 0.33 Absolute Basophils 0.05 PT INR Sodium 134 L Potassium 4.0 Chloride 98 Carbon Dioxide 30.5 Anion Gap 5.5 BUN 11 Creatinine 0.86 Estimated GFR/1.73 m2 >= 60.00 Glucose 94 Calcium 8.2 L Magnesium 1.8 Total Bilirubin 3.9 H Conjugated Bilirubin 2.69 H AST 101 H ALT 34 Alkaline Phosphatase 173 H Ammonia C-Reactive Protein 3.26 H Total Protein 6.6 Albumin 1.5 L Procalcitonin 0.4 Urine Color Urine Clarity Urine pH Ur Specific [place] Urine Protein Urine Ketones Urine Blood Urine Nitrite Urine Bilirubin Urine Urobilinogen Ur Leukocyte Esterase Urine RBC Urine WBC Ur Epithelial Cells Urine Crystals Urine Bacteria Urine Mucus Ur Culture Indicated? Urine Glucose 06/20/20 06/20/20 06/20/20 08:47 11:05 13:50 WBC RBC Hgb Hct MCV MCH MCHC RDW Plt Count MPV Immature Gran % Neutrophils % Lymphocytes % Monocytes % Eosinophils % Basophils % Nucleated RBC % Absolute Neutrophils Absolute Lymphocytes Absolute Monocytes Absolute Eosinophils Absolute Basophils PT INR Sodium Potassium Chloride Carbon Dioxide Anion Gap BUN Creatinine Estimated GFR/1.73 m2 Glucose Calcium Magnesium Total Bilirubin Conjugated Bilirubin AST ALT Alkaline Phosphatase Ammonia < 10 L C-Reactive Protein Total Protein Albumin Procalcitonin Urine Color Cancelled [place] Urine Clarity Cancelled Cloudy Urine pH Cancelled 7.5 Ur Specific [place] Cancelled 1.020 Urine Protein Cancelled Trace H Urine Ketones Cancelled Negative Urine Blood Cancelled Large H Urine Nitrite Cancelled Positive H Urine Bilirubin Cancelled Small H Urine Urobilinogen Cancelled 0.2 Ur Leukocyte Esterase Cancelled Negative Urine RBC >50 H Urine WBC Not Applicable Ur Epithelial Cells Not Applicable Urine Crystals Not Applicable Urine Bacteria Many Urine Mucus Not Applicable Ur Culture Indicated? C&s done as ordered Urine Glucose Cancelled Negative 06/20/20 06/20/20 06/21/20 13:50 13:50 07:03 WBC 11.36 H RBC 2.73 L Hgb 9.9 L Hct 28.4 L MCV 104.0 H MCH 36.3 H MCHC 34.9 RDW 18.5 H Plt Count 260 MPV 10.5 Immature Gran % 0.7 Neutrophils % 72.4 Lymphocytes % 12.9 Monocytes % 10.9 Eosinophils % 2.6 Basophils % 0.5 Nucleated RBC % 0 Absolute Neutrophils 8.22 H Absolute Lymphocytes 1.47 Absolute Monocytes 1.24 H Absolute Eosinophils 0.30 Absolute Basophils 0.06 PT 13.7 H INR 1.4 H Sodium Potassium Chloride Carbon Dioxide Anion Gap BUN Creatinine Estimated GFR/1.73 m2 Glucose Calcium Magnesium Total Bilirubin Conjugated Bilirubin AST ALT Alkaline Phosphatase Ammonia C-Reactive Protein Total Protein 7.4 Albumin Procalcitonin Urine Color Urine Clarity Urine pH Ur Specific [place] Urine Protein Urine Ketones Urine Blood Urine Nitrite Urine Bilirubin Urine Urobilinogen Ur Leukocyte Esterase Urine RBC Urine WBC Ur Epithelial Cells Urine Crystals Urine Bacteria Urine Mucus Ur Culture Indicated? Urine Glucose
[2020-06-21 07:38] LABS: ALT 25 U/L (14-59); AST 78 U/L (15-37); Albumin 1.3 g/dL (3.4-5.0); Alkaline Phosphatase 160 U/L (46-116); Anion Gap 3.3 mmol/L (3-11); BUN 13 mg/dL (7-18); Bilirubin, Direct 1.76 mg/dL (0.00-0.20); Bilirubin, Total 2.6 mg/dL (0.2-1.0); CO2 30.7 mmol/L (21.0-32.0); CREATININE 0.77 mg/dL (0.55-1.02); Chloride 100 mmol/L (98-107); Glucose 98 mg/dL (74-106); Potassium 3.8 mmol/L (3.5-5.1); Sodium 134 mmol/L (136-145); Total Protein 6.1 g/dL (6.4-8.2)
[2020-06-21] MEDS: Budesonide/Formoterol 160/4.5 6 GM 60 PUFF INH IH ×2 (07:41→19:22)
[2020-06-21] MEDS: Potassium Chloride 20 MEQ TABCR PO (07:48)
[2020-06-21] MEDS: Furosemide 20 MG TAB 40 MG PO (07:48)
[2020-06-21] MEDS: Magnesium Chloride 64 MG TABCR PO ×2 (07:48→19:21)
[2020-06-21] MEDS: Spironolactone 50 MG TAB 100 MG PO (07:49)
[2020-06-21] MEDS: Magnesium Oxide 400 MG TAB PO (07:49)
[2020-06-21] MEDS: Thiamine 100 MG TAB PO ×3 (07:50→19:21)
[2020-06-21] MEDS: Omeprazole 20 MG CAPCR PO (07:50)
[2020-06-21 07:58] LABS: Vitamin B12 529 pg/mL (193-986)
[2020-06-21 08:43] LABS: Ferritin > 2000 ng/mL (8-252)
[2020-06-21 09:11] LABS: Iron 96 ug/dL (50-170); Total Iron Binding Capacity 90 ug/dL (250-450); Transferrin Sat 107 % (15-50)
--- NOTE | 2020-06-21 11:27 | PGE_ITS ---
Date of Service Date of service: 06/21/20 Time of Service: 11:28 Assessment and Plan Assessment and plan (1) UTI (urinary tract infection): Status: Suspected Assessment and plan: culture growing gram negative rods, ID and sensitivities pending. continue ceftriaxone day 2/5 Qualifiers: Urinary tract infection type: site unspecified Hematuria presence: without hematuria Qualified Code(s): N39.0 - Urinary tract infection, site not specified (2) Cirrhosis of liver: Status: Acute Assessment and plan: d/t ETOH. now large volume ascities. plan for diagnostic and therapeutic paracentesis today with surgery started on spironolactone 100 mg and lasix 40 mg. ongoing hypoalbuminemia. nutrition consult placed child-ramirez score of 10, class C (decompensated) 2 gm sodium diet no NSAIDS Qualifiers: Hepatic cirrhosis type: alcoholic cirrhosis Ascites presence: with ascites Qualified Code(s): K70.31 - Alcoholic cirrhosis of liver with ascites (3) Ambulatory dysfunction: Status: Acute Assessment and plan: severe will multiple recent falls. falls precautions, PT/OT, suspect possible ataxia from ETOH use. will continue to monitor. denies saddle anesthesia, no urinary retention or incontinence of bowel. no signs of cord compression syndrome. (4) CHF (congestive heart failure): Status: Chronic Assessment and plan: echo shows EF 55-60%. continue lasix and spironol actone. monitor I&O, daily weights, likely secondary to cirrhosis large pleural effusion likely secondary to ascities Qualifiers: Heart failure type: unspecified Heart failure chronicity: chronic Qualified Code(s): I50.9 - Heart failure, unspecified (5) Asthma: Status: Chronic Assessment and plan: stable will continue home inhalers and closely monitor add incentive spirometer (6) Alcohol abuse: Status: Suspected Assessment and plan: no signs of withdrawal completed 5 days of high dose thiamine (7) Esophageal reflux: Status: Chronic Assessment and plan: continue omeprazole Qualifiers: Esophagitis presence: without esophagitis Qualified Code(s): K21.9 - Gastro-esophageal reflux disease without esophagitis (8) Hypertension: Status: Chronic Assessment and plan: blood pressures low but asymptomatic, in the 90's systolic, restarted on low dose metoprolol for rebound tachycardia, HR improved to 80-90's continue to monitor. Qualifiers: Hypertension type: essential hypertension Qualified Code(s): I10 - Essential (primary) hypertension (9) Severe protein-calorie malnutrition: Status: Acute Assessment and plan: nutrition consult high protein shakes between meals. (10) DVT prophylaxis: Status: Acute Assessment and plan: teds scds heparin (11) Discharge planning issues: Status: Acute Assessment and plan: case management consulted, will likely need [facility]hab for severe ambulatory dysfunction. case discussed with Dr Villela who is in agreement with plan Subjective Subjective Patient reports: no new complaints, tolerating liquids well and afebrile; denies tolerating a regular diet (reports poor appetite), nausea and vomiting Interval history since last seen: working with physical therapy with slow progression. continues to have poor po intake. no fevers. Exam Const General: cooperative, comfortable, no acute distress and ill appearing (older than stated age) chronically Nutritional Appearance: average body habitus Orientation: alert, awake and oriented x3 HENMT Head: normal to inspection, normocephalic and atraumatic Mouth: oral mucosae normal Resp Effort & Inspection: no cough and tachypneic Auscultation: diminished lung sounds Cardio Rate: regular rate Rhythm: regular rhythm GI Inspection: edema Palpation: nontender and ascites (extensive) Auscultation: normal bowel sounds Skin General skin exam: ecchymosis (various scattered bruising) Lesions: lesion noted (abrasion/skin tear to right upper extremity) Rashes: no rashes Neuro General: patient alert, patient awake, patient oriented x3 and moves all extremities Extrem General: no pedal edema Objective Last Vital Signs Temp 36.7 C 06/21/20 10:55 Pulse 99 H 06/21/20 10:55 Resp 18 06/21/20 10:55 BP 92/63 L 06/21/20 10:55 Pulse Ox 99 06/21/20 10:55 Laboratory Results - last 24 hr 06/20/20 06/20/20 06/20/20 07:01 07:01 11:05 WBC RBC Hgb Hct MCV MCH MCHC RDW Plt Count MPV Immature Gran % Neutrophils % Lymphocytes % Monocytes % Eosinophils % Basophils % Nucleated RBC % Absolute Neutrophils Absolute Lymphocytes Absolute Monocytes Absolute Eosinophils Absolute Basophils PT INR Sodium 134 L Potassium 4.0 Chloride 98 Carbon Dioxide 30.5 Anion Gap 5.5 BUN 11 Creatinine 0.86 Estimated GFR/1.73 m2 >= 60.00 Glucose 94 Calcium 8.2 L Magnesium 1.8 Iron TIBC Transferrin % Sat Ferritin Total Bilirubin 3.9 H Conjugated Bilirubin 2.69 H AST 101 H ALT 34 Alkaline Phosphatase 173 H Ammonia C-Reactive Protein 3.26 H Total Protein 6.6 Albumin 1.5 L Vitamin B12 Folate Procalcitonin 0.4 Urine Color [place] Urine Clarity Cloudy Urine pH 7.5 Ur Specific [place] 1.020 Urine Protein Trace H Urine Ketones Negative Urine Blood Large H Urine Nitrite Positive H Urine Bilirubin Small H Urine Urobilinogen 0.2 Ur Leukocyte Esterase Negative Urine RBC >50 H Urine WBC Not Applicable Ur Epithelial Cells Not Applicable Urine Crystals Not Applicable Urine Bacteria Many Urine Mucus Not Applicable Ur Culture Indicated? C&s done as ordered Urine Glucose Negative 06/20/20 06/20/20 06/20/20 13:50 13:50 13:50 WBC RBC Hgb Hct MCV MCH MCHC RDW Plt Count MPV Immature Gran % Neutrophils % Lymphocytes % Monocytes % Eosinophils % Basophils % Nucleated RBC % Absolute Neutrophils Absolute Lymphocytes Absolute Monocytes Absolute Eosinophils Absolute Basophils PT 13.7 H INR 1.4 H Sodium Potassium Chloride Carbon Dioxide Anion Gap BUN Creatinine Estimated GFR/1.73 m2 Glucose Calcium Magnesium Iron TIBC Transferrin % Sat Ferritin Total Bilirubin Conjugated Bilirubin AST ALT Alkaline Phosphatase Ammonia < 10 L C-Reactive Protein Total Protein 7.4 Albumin Vitamin B12 Folate Procalcitonin Urine Color Urine Clarity Urine pH Ur Specific [place] Urine Protein Urine Ketones Urine Blood Urine Nitrite Urine Bilirubin Urine Urobilinogen Ur Leukocyte Esterase Urine RBC Urine WBC Ur Epithelial Cells Urine Crystals Urine Bacteria Urine Mucus Ur Culture Indicated? Urine Glucose 06/21/20 06/21/20 06/21/20 07:03 07:03 07:03 WBC 11.36 H RBC 2.73 L Hgb 9.9 L Hct 28.4 L MCV 104.0 H MCH 36.3 H MCHC 34.9 RDW 18.5 H Plt Count 260 MPV 10.5 Immature Gran % 0.7 Neutrophils % 72.4 Lymphocytes % 12.9 Monocytes % 10.9 Eosinophils % 2.6 Basophils % 0.5 Nucleated RBC % 0 Absolute Neutrophils 8.22 H Absolute Lymphocytes 1.47 Absolute Monocytes 1.24 H Absolute Eosinophils 0.30 Absolute Basophils 0.06 PT INR Sodium 134 L Potassium 3.8 Chloride 100 Carbon Dioxide 30.7 Anion Gap 3.3 BUN 13 Creatinine 0.77 Estimated GFR/1.73 m2 >= 60.00 Glucose 98 Calcium 8.0 L Magnesium Iron 96 TIBC 90 L Transferrin % Sat 107 H Ferritin > 2000 H Total Bilirubin 2.6 H Conjugated Bilirubin 1.76 H AST 78 H ALT 25 Alkaline Phosphatase 160 H Ammonia C-Reactive Protein Total Protein 6.1 L Albumin 1.3 L Vitamin B12 Folate Procalcitonin Urine Color Urine Clarity Urine pH Ur Specific [place] Urine Protein Urine Ketones Urine Blood Urine Nitrite Urine Bilirubin Urine Urobilinogen Ur Leukocyte Esterase Urine RBC Urine WBC Ur Epithelial Cells Urine Crystals Urine Bacteria Urine Mucus Ur Culture Indicated? Urine Glucose 06/21/20 07:03 WBC RBC Hgb Hct MCV MCH MCHC RDW Plt Count MPV Immature Gran % Neutrophils % Lymphocytes % Monocytes % Eosinophils % Basophils % Nucleated RBC % Absolute Neutrophils Absolute Lymphocytes Absolute Monocytes Absolute Eosinophils Absolute Basophils PT INR Sodium Potassium Chloride Carbon Dioxide Anion Gap BUN Creatinine Estimated GFR/1.73 m2 Glucose Calcium Magnesium Iron TIBC Transferrin % Sat Ferritin Total Bilirubin Conjugated Bilirubin AST ALT Alkaline Phosphatase Ammonia C-Reactive Protein Total Protein Albumin Vitamin B12 529 Folate 2.0 L Procalcitonin Urine Color Urine Clarity Urine pH Ur Specific [place] Urine Protein Urine Ketones Urine Blood Urine Nitrite Urine Bilirubin Urine Urobilinogen Ur Leukocyte Esterase Urine RBC Urine WBC Ur Epithelial Cells Urine Crystals Urine Bacteria Urine Mucus Ur Culture Indicated? Urine Glucose
--- NOTE | 2020-06-21 11:37 | CMPROGNOTE_ITS ---
- If Service Date Differs Date of service: 06/21/20 Time of Service: 11:38 Care Management Progress Note S/O: Vesta was sitting up in bed when CM met with her. Dr. Germain had performed a paracentesis shortly before the visit and according to Vesta and her boyfriend, she stated that the fluid looked good. They informed CM that tests will be run on the fluid and that the provider is contacting GI/liver specialists at a tertiary care center for treatment recommendations. Discharge plans were also discussed. The plan is for Vesta to go to [facility] although they both expressed a preference for Vesta to remain at [facility]. CM explained about the SB program and the limited capacity we have to offer this service, especially when census is high. They asked about visitation at [facility] and CM was able to confirm that visits can now occur on the porch following Covid guidelines from the time of admission. Both said this made them feel much better about the transfer as visits with each other are very important to them. A: 70 year old female admitted to [facility] 06/15/20 for CHF P: Vesta will discharge to [facility] for continued rehabilitation prior to returning home. She will transport via the facility's W/C van. Forms placed on chart. CM continues to follow.
--- NOTE | 2020-06-21 12:52 | PT.INTREAT ---
Date of service: 06/21/20 Time of Service: 12:52 PT Notes Visit Reasons: Congestive heart failure Inpatient Physical Therapy Treatment Note [facility] Date: 06/21/2020 PRECAUTIONS: Fall SUBJECTIVE: Vesta reports I'm not ready for PT. She states that she has been sitting up in the chair for most of the morning. She is agreeable to particiapting in PT, although reports I can't do much. OBJECTIVE: PAIN: Patient c/o R inner thigh pain, of reportedly unknown origin BED MOBILITY/TRANSFERS Supine-sit: I Sit-stand: SBA Stand-sit: SBA GAIT Assistive Device: FWW Weight bearing: Full Assist: CGA Distance: 150' + 15' + 5' Deviation: Continued ataxic gait with decreased knee flexion and wide VAN STAIRS: Up/down 3x4 using B rails and a step-to pattern with CGA, requiring significant cueing for sequence and encouragement. ASSESSMENT: Patient tolerated a progression in gait distance, deminstrating continued ataxic gait with [id number] knee flexion and wide VAN, with FWW support and CGA . She demonstrates increased ability to perform sit<>stand transfers with decreased assist. She would benefit from continued gait and transfer training and global strengthening for improved mobility and continued progression toward independence and baseline level of function. PLAN: Continue with gait and transfer training as well as global strengthening TREATMENT CODE/TIME: 40 minutes; 26614 x3
[2020-06-21] MEDS: cefTRIAXone 1 GM/50 ML BAG IVPB (13:00)
[2020-06-21] MEDS: ALBUMIN HUMAN 25 GM/100 ML BTL IV ×2 (14:32→15:27)
[2020-06-21 14:49] LABS: Clarity Clear; Nucleated Cells 61 uL (0); Source Peritoneal
[2020-06-21 14:50] LABS: Mononuclear Cells 93 %; Polynuclear Cells 7 %
--- NOTE | 2020-06-21 15:07 | W.PM.OP ---
Date of service: 06/21/20 Time of Service: 12:45 Operative Note Operative Note DATE OF PROCEDURE: 06/21/20 PRE-OP DIAGNOSIS: Ascitis due to alcoholic cirrhosis POST-OP DIAGNOSIS: same PROCEDURE: Paracenthesis SURGEON: Mariluz Germain ANESTHESIA: local (20 cc of 1% Lidocaine) ESTIMATED BLOOD LOSS: 3 PATHOLOGY: none sent COMPLICATIONS: None Patient was transported to: no change Patient's condition: stable Findings: 70 year old female diagnosed with alcoholic cirrhosis. Spend 30 minutes discussing her diagnoses of cirrhosis, importance of alcohol abstinence, increased protein intake. Questions answered regarding what cirrhosis is, why there is ascitis, what bilirubin is and treatment of cirrhosis. We reviewed the procedure of a paracenthesis as well as potential complications. I also reviewed the fact that unless she starts to eat more protein and stopps drinking her ascitis will not get controlled. Procedure Description: After informed consent was obtained from the patient she was placed on her bed in a supine position. The abdomen was palpated. There was a fluid wave noted. The left lower quadrant was prepped and draped in a sterile surgical fashion. 1% lidocaine was injected into the dermis and down to the fascia. A small incision was made with an 11 blade. The needle and sheath that came in the kit was slowly advanced through the subcutaneous tissue into the abdominal cavity. As soon as serous fluid was suctioned the sheath was advanced over the needle into the abdomen and the needle was removed. The sheath was then attached to suction canisters and a total of 2.5 L of serous fluid was removed without complication. Once the procedure was done the sheath was removed and a small Band-Aid was applied over the incision. The patient was slowly placed into a sitting position. Patient did well and there were no immediate complications. The fluid was sent down to the lab for Gram stain, cell count, culture, SAAG, Albumin and protein.
--- NOTE | 2020-06-21 15:47 | CHAPLAIN ---
I visited with Vesta's and gave him a prayer shawl for Vesta. He said Vesta was moving around better today and may be discharged to [facility] He wasn't sure what the visiting policies are there, but said Care Management was looking into that for him. Vesta was connected to a [facility] [employer] previously and her 's background is [employer].
[2020-06-21 21:25] LABS: Albumin, Body FLuid <1.0 g/dL (See Note)
[2020-06-22] MEDS: Heparin 5,000 UNITS/ML VIAL 5000 UNITS SC ×2 (05:17→18:12)
[2020-06-22 07:16] VITALS: BP 109/74; PULSE 103; RESP 18; TEMP 37.2; O2SAT 96
[2020-06-22 08:15] VITALS: O2SAT 96
[2020-06-22] MEDS: Furosemide 20 MG TAB 40 MG PO (08:15)
[2020-06-22] MEDS: Metoprolol 12.5 MG TAB PO (08:15)
[2020-06-22] MEDS: Omeprazole 20 MG CAPCR PO (08:15)
[2020-06-22] MEDS: Magnesium Oxide 400 MG TAB PO (08:15)
[2020-06-22] MEDS: Folic Acid 1 MG TAB PO (08:15)
[2020-06-22] MEDS: Magnesium Chloride 64 MG TABCR PO ×2 (08:15→20:21)
[2020-06-22] MEDS: Potassium Chloride 20 MEQ TABCR PO (08:16)
[2020-06-22] MEDS: Spironolactone 50 MG TAB 100 MG PO (08:16)
[2020-06-22] MEDS: Thiamine 100 MG TAB PO ×3 (08:16→20:21)
[2020-06-22] MEDS: Budesonide/Formoterol 160/4.5 6 GM 60 PUFF INH IH ×2 (08:20→20:23)
--- NOTE | 2020-06-22 09:06 | PGE_ITS ---
Date of Service Date of service: 06/22/20 Time of Service: 09:06 Assessment and Plan Assessment and plan (1) Cirrhosis of liver: Start date: 06/22/20 Start time: 09:10 Status: Acute Assessment and plan: Continue lasix and spirlactone, Outpatient follow up with for further cirrhosis work up and establish care of GI Awaiting COVID testing can, be discharged to h/r when negative Qualifiers: Hepatic cirrhosis type: alcoholic cirrhosis Ascites presence: with ascites Qualified Code(s): K70.31 - Alcoholic cirrhosis of liver with ascites (2) UTI (urinary tract infection): Start date: 06/22/20 Start time: 09:11 Status: Suspected Assessment and plan: Transition to oral cefpodxime for UTI. E. Coli growing in culture greater than 100,000 Qualifiers: Urinary tract infection type: site unspecified Hematuria presence: without hematuria Qualified Code(s): N39.0 - Urinary tract infection, site not specified (3) Ambulatory dysfunction: Start date: 06/22/20 Start time: 09:14 Status: Acute Assessment and plan: Severe with multiple recent falls. Likely ataxia from ETOH use. Continue falls precautions, PT/OT, PT recommends SNF for rehab prior to returning home. (4) CHF (congestive heart failure): Start date: 06/22/20 Start time: 09:14 Status: Resolved Assessment and plan: Resolved. Euvolemic, secondary to cirrhosis Qualifiers: Heart failure type: unspecified Heart failure chronicity: chronic Qualified Code(s): I50.9 - Heart failure, unspecified (5) Alcohol abuse: Start date: 06/22/20 Start time: 09:14 Status: Suspected Assessment and plan: Discontinued no signs of withdrawal (6) Esophageal reflux: Start date: 06/22/20 Start time: 09:15 Status: Chronic Assessment and plan: continue omeprazole Qualifiers: Esophagitis presence: without esophagitis Qualified Code(s): K21.9 - Gastro-esophageal reflux disease without esophagitis (7) Hypertension: Start date: 06/22/20 Start time: 09:15 Status: Chronic Assessment and plan: Normotensive, HR in 80's-90's Qualifiers: Hypertension type: essential hypertension Qualified Code(s): I10 - Essential (primary) hypertension (8) Severe protein-calorie malnutrition: Start date: 06/22/20 Start time: 09:15 Status: Acute Assessment and plan: Chemistry Quality Control Analyst consulted as above. Continue increased protein intake via supplements. (9) DVT prophylaxis: Start date: 06/22/20 Start time: 09:15 Status: Acute Assessment and plan: Subcutaneous heparin, SCDs, teds. (10) Discharge planning issues: Start date: 06/22/20 Start time: 09:15 Status: Acute Assessment and plan: She is a full code. She will likely need rehab at a custodial facility prior to returning home. PT recommends rehab. This case was discussed with Dr. Villela who is in agreement. Subjective Subjective Patient reports: no new complaints Interval history since last seen: Feeling better, able to eat today. Will plan on discharge for this afternoon or tomorrow, COVID pending. Exam Narrative Exam Narrative: General: Elderly female, chronically ill-appearing sitting up in , awake and alert, answers questions appropriately. HEENT: Normocephalic, atraumatic, skin is pale slight jaundice, sclera icteric, pupils equal and round, mucous membranes moist. Neck: Supple. no jvd Cardiovascular: Heart has regular rate and rhythm, mildly tachycardic. Respiratory: Respirations appear even and unlabored, no coughing during exam, lung sounds with rales to right base. GI: Abdomen soft, nontender, palpation, bowel sounds x4 quadrants. Extremities: Right ankle with trace edema, no edema to LLE. Objective Last Vital Signs Temp 37.2 C 06/22/20 07:16 Pulse 103 H 06/22/20 07:16 Resp 18 06/22/20 07:16 BP 109/74 06/22/20 07:16 Pulse Ox 96 06/22/20 08:15 Laboratory Results - last 24 hr 06/21/20 06/21/20 06/21/20 07:03 13:30 13:30 Iron 96 TIBC 90 L Transferrin % Sat 107 H Fluid Source Peritoneal Fluid Color Yellow Fluid Clarity Clear Fluid WBC 61 Fld Polynuclear WBCs % 7 Fluid Mononuclear Cell 93 Fluid Albumin <1.0 S.cerevisiae IgG Ab S.cerevisiae IgA Ab 06/21/20 13:30 Iron TIBC Transferrin % Sat Fluid Source Fluid Color Fluid Clarity Fluid WBC Fld Polynuclear WBCs % Fluid Mononuclear Cell Fluid Albumin S.cerevisiae IgG Ab Cancelled S.cerevisiae IgA Ab Cancelled
--- NOTE | 2020-06-22 10:08 | PDOC.CMPRO ---
Care Management Progress Note S/O: Vesta was sitting up in bed when CM met with her. No change to overall plan; discharge delayed due to requirement for Covid Screen which was not collected until this morning. CM continues to follow. A: 70 year old female admitted to [facility] 06/15/20 for CHF P: Vesta will discharge to [facility] for continued rehabilitation prior to returning home. She will transport via the facility's W/C van. Forms placed on chart. CM continues to follow.
[2020-06-22 10:14] LABS: Transferrin 77 mg/dL (201-352)
[2020-06-22] MEDS: Cefpodoxime 200 MG TAB PO ×2 (10:22→22:20)
--- NOTE | 2020-06-22 10:30 | PT.INDS ---
Date of service: 06/22/20 Time of Service: 10:30 PT Notes Visit Reasons: Congestive heart failure Physical Therapy Inpatient Discharge Summary Date: 06/22/2020 Dates of service: 06/16/2020 through 06/22/2020 Referring Doctor: Jackie Grider NP PT Orders: PT CONSULT: Eval/treat Precautions: Fall. Standard. Activity as tolerated Patient Profile/Admitting Diagnosis: Vesta is a 70-year-old female who presented to the ED on 06/15/2020 with a chief presentation of generalized weakness that has lasted for a week and was worse the past 3 days prior to ED admission. Per chart, EMS found her sitting on the floor alert and oriented with significant other unable to lift her off the floor. Patient is diagnosed with ambulatory dysfunction with chronic diagnosis of CHF, asthma, alcohol abuse, esophageal reflux, and hypertension. PMHX: Medical History Alcohol abuse (06/11/11) Macrocytosis Allergic rhinitis Ankle fracture (03/28/06) Impacted cerumen of both ears Social History/Home Situation: Patient lives with significant other in a private home with 3 steps to enter at the front and 4 at the back. She states that Luis Manuel her significant other is planning on building a ramp at the back. He states that she shares that house chores with Luis Manuel. She reports that she staff started using a front wheeled walker last Friday due to increasing weakness. 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 Equipment Owned/DME: Front wheeled walker, single-point cane, wheelchair Subjective: Agreeable to to a longterm facility today. General Observation: Patient sitting on bedside chair. Fearful of falling. Telemetry monitoring in place. IV in the left UE. Mental Status: Alert and oriented x 4 Pain: None reported ROM: Right Upper Extremity: Shoulder flexion unable to complete the last 25% of the normal range. Shoulder abduction unable to complete the last 25% of the normal range. Elbow flexion WFL. Wrist flexion WFL. Opening and closing of hand WFL. Left Upper Extremity: Shoulder flexion unable to complete the last 25% of the normal range. Shoulder abduction unable to complete the last 25% of the normal range. Elbow flexion WFL. Wrist flexion WFL. Opening and closing of hand WFL. Right Lower Extremity: Hip flexion unable to complete the last 75% of the normal range. Hip abduction WFL unable to complete the last 75% of the normal range.. Knee flexion allows up to 50% of available range knee extension negative. 45 degrees. Ankle dorsiflexion about 10 degrees is. Ankle plantarflexion WFL. Left Lower Extremity: Hip flexion unable to complete the last 75% of the normal range. Hip abduction WFL unable to complete the last 75% of the normal range.. Knee flexion allows up to 50% of available range knee extension negative. 45 degrees. Ankle dorsiflexion about 10 degrees. Ankle plantarflexion WFL. Strength: Right Upper Extremity: Shoulder flexors 3-/5. Shoulder abductors 3-/5. Elbow flexors 4/5. Elbow extensors 4/5. Quality Assurance Monitor Final weak but functional. Left Upper Extremity: Shoulder flexors 3-/5. Shoulder abductors 3-/5. Elbow flexors 4/5. Elbow extensors 4/5. Quality Assurance Monitor Final weak but functional. Right Lower Extremity: Hip flexors 3-/5. Hip abductors 3-/5. Knee flexors 3-/5. Knee extensors 3-/5. Ankle dorsiflexors 3-/5. Ankle plantarflexors 4-/5. Left Lower Extremity:Hip flexors 3-/5. Hip abductors 3-/5. Knee flexors 3-/5. Knee extensors 3-/5. Ankle dorsiflexors 3-/5. Ankle plantarflexors 4-/5. Sensation: Intact as to pain and pressure on bilateral lower extremities. Bed Mobility/Transfers: Rolling independent Supine to sit independent Sit to supine independent Sit to stand contact-guard assist Stand to sit standby assist Bed to chair contact-guard assist Chair to bed contact-guard assist Gait: 200 feet using front wheeled walker with full weight bearing requiring wheelchair follow and contact-guard assist of PT. Balance: Static Sitting: Normal Dynamic Sitting: Normal Static Standing: Fair Dynamic Standing: Fair Assessment: Vesta continues to demonstrate significant fear of falling and requires the use of a front wheeled walker and assist of 2 people as well as encouragement and reassurance to perform transfers and ambulation, generalized weakness, gait instability, balance impairment, and increased risk for falls. Vesta is a 70-year-old female who presented to the ED on 06/15/2020 with a chief presentation of generalized weakness that has lasted for a week and was worse the past 3 days prior to ED admission. Per chart, EMS found her sitting on the floor alert and oriented with significant other unable to lift her off the floor. Patient is diagnosed with ambulatory dysfunction with chronic diagnosis of CHF, asthma, alcohol abuse, esophageal reflux, and hypertension. Patient continues to present with clinical signs and symptoms consistent with current/admitting diagnoses that have resulted to mobility limitations, gait instability, generalized weakness, and impairment of motor control as demonstrated by the following impairment level findings: 1. Decreased strength to B LE and UE major muscle groups 2. Impaired standing balance 3. Impaired activity tolerance 4. Limitation of joint range of motion in B UE/LE 5. Significant fear of falling Impairments are doing to contribute to the following functional limitations: 1. Dependent bed mobility skills 2. Increased dependence with transfers 3. Inability to safely ambulate without assistive device and physical assistance 4. Increase completion time for mobility ADL performance 5. Increased fall risk 6. Inability to negotiate steps alone safely Goals: Goals X1 week 1. Supine-Sit independent MET 2. Sit-Supine independent MET 3. Sit-Stand independent NOT MET 4. Stand-Sit independent NOT MET 5. Bed-Chair independent NOT MET 6. Chair-Bed independent NOT MET 7. Independent gait on level surface with use of least restrictive device for at least 300 feet without report of pain nor dyspnea NOT MET 8. Independent stair negotiation while holding onto bilateral rails for at least 5 steps without report of pain nor dyspnea NOT MET 9. Good static and dynamic standing balance/tolerance NOT MET DISCHARGE RECOMMENDATIONS: Patient will benefit from longterm facility placement for continued skilled physical therapy services in order to progress mobility level, strength, and balance in preparation for a safe discharge to home. TREATMENT CODE/TIME: 27259 x 35 minutes beginning at 10:30 AM. Thank you for the opportunity to participate in the care of this patient. Katya Chan PT, DPT, CLT [facility] [place], [place]
--- NOTE | 2020-06-22 10:35 | W.NUTRFU ---
Date of service: 06/22/20 Time of Service: 10:35 Nutritional Follow up NOTE: Vesta continues on 2 g sodium diet with > 75% of meal completion. Receives ensure BID, liquid protein 1 oz BID. Currently meeting 100% nutrient needs for weight maintenance. Weight fluctuations noted, as expected with lasix use/ ascites. Will continue to follow and monitor. Time Spent in Nutritional Counseling and Treatment: 5 min spent face to face
[2020-06-22 11:13] VITALS: BP 95/68; PULSE 86; RESP 17; TEMP 36.9; O2SAT 98
[2020-06-22 12:20] LABS: HBs Antibody, Qual Negative (See Note); HBs Antibody, Quant <3.1 mIU/mL (See Note); Hepatitis B Core Antibody Negative (Negative); Hepatitis B surface Ag Negative (Negative); Hepatitis C Ab w Rflx HCV PCR Negative (Negative)
[2020-06-22 16:04] VITALS: BP 98/65; PULSE 93; RESP 18; TEMP 37.2; O2SAT 97
[2020-06-22] MEDS: Normal Saline Flush 10 ML SYR IVP (18:12)
[2020-06-22 18:55] VITALS: BP 97/63; PULSE 98; RESP 17; TEMP 37.1; O2SAT 97
[2020-06-22 23:07] VITALS: BP 100/68; PULSE 72; RESP 19; TEMP 36.6; O2SAT 97
[2020-06-23] VITALS (7 sets, daily range): BP systolic 85–99; BP diastolic 54–66; PULSE 91–109; RESP 16–18; TEMP 36.4–37.1; O2SAT 95–99
[2020-06-23] MEDS: Heparin 5,000 UNITS/ML VIAL 5000 UNITS SC ×2 (05:56→18:20)
[2020-06-23] MEDS: Spironolactone 50 MG TAB 100 MG PO (08:50)
[2020-06-23] MEDS: Thiamine 100 MG TAB PO ×3 (08:50→20:19)
[2020-06-23] MEDS: Metoprolol 12.5 MG TAB PO (08:50)
[2020-06-23] MEDS: Omeprazole 20 MG CAPCR PO (08:50)
[2020-06-23] MEDS: Magnesium Oxide 400 MG TAB PO (08:50)
[2020-06-23] MEDS: Magnesium Chloride 64 MG TABCR PO (08:50)
[2020-06-23] MEDS: Potassium Chloride 20 MEQ TABCR PO (08:51)
[2020-06-23] MEDS: Furosemide 20 MG TAB 40 MG PO (08:51)
[2020-06-23] MEDS: Folic Acid 1 MG TAB PO (08:51)
--- NOTE | 2020-06-23 09:01 | CMDISCH_ITS ---
LACE Index Scoring Tool - Questions: Length of Stay (in days): 7 - 13 Acuity (Admit via E.D.?): Yes E.D. Visits: 1 - Answers: Total Score: 9 Risk of Readmission: Low Risk Care Management Discharge Reason for Hospitalization: CHF Discharge Plan: Vesta will discharge to [facility] for continued rehabilitation prior to returning home. She will transport via the facility's W/C van. CM continues to follow. Patient/Family Education Needs: Review discharge instructions, discuss Ask Me Three. Services Needed at Discharge: Nursing Home Facility ([facility] ), Transportation (W/C Van)
[2020-06-23] MEDS: Budesonide/Formoterol 160/4.5 6 GM 60 PUFF INH IH (09:36)
[2020-06-23] MEDS: Cefpodoxime 200 MG TAB PO ×2 (10:25→22:20)
--- NOTE | 2020-06-23 11:51 | W.PM.DS.N ---
Date of service: 06/23/20 Time of Service: 11:51 DS: Diagnosis Discharge Diagnosis (1) Cirrhosis of liver: Status: Acute (2) UTI (urinary tract infection): Status: Suspected (3) Ambulatory dysfunction: Status: Acute (4) CHF (congestive heart failure): Status: Resolved (5) Alcohol abuse: Status: Suspected (6) Esophageal reflux: Status: Chronic (7) Hypertension: Status: Chronic (8) Severe protein-calorie malnutrition: Status: Acute Discharge Plan Disposition Patient Disposition: SNF (LEVEL 1) [facility] Condition: Stable Discharge Details Reason For Visit: CHF Admit Date/Time: 06/15/20 14:23 Admit Provider: Vasiliy Olivas Attending Provider: Vasiliy Olivas Primary Care Provider: Janice Liao Hospital Course Hospital Course: This is a 70-year-old female presented to the ED with chief complaint of generalized weakness which is been ongoing for the last week. Worse the last 3 days. Work up in the ED showed volume overload with significant ascities. She was given lasix IV and admitted to med/surg for further evaluation. Ultrasound confirmed hepatic cirrhosis, consistent with history of ETOH use and physical exam. She had large amount of ascities, other coincidental findings included gallbladder sludge with no biliary ductal dilatation. She was started on spironolactone and lasix. Home Meds and New Rx's Prescriptions: New cefpodoxime 200 mg Tablet 200 mg PO BID@1000,2200 Qty: 11 RF: 0 potassium chloride [Klor-Con M20] 20 mEq Tablet,Er Particles/Crystals 20 meq PO DAILY Qty: 30 RF: 0 magnesium oxide 400 mg (241.3 mg magnesium) Tablet 400 mg PO DAILY Qty: 30 RF: 0 furosemide 20 mg Tablet 40 mg PO DAILY Qty: 30 RF: 0 spironolactone 50 mg Tablet 100 mg PO DAILY Qty: 60 RF: 0 thiamine mononitrate (vit B1) [Vitamin B-1 (mononitrate)] 100 mg Tablet 100 mg PO DAILY Qty: 30 RF: 0 Continued magnesium chloride [Mag 64] 64 mg tablet,delayed release (DR/EC) 64 mg PO BID Qty: 180 RF: 3 triamcinolone acetonide 0.1 % ointment 1 applic TP BID Qty: 30 RF: 3 omeprazole 20 mg capsule,delayed release(DR/EC) 20 mg PO DAILY Qty: 90 RF: 3 loratadine [Claritin] 10 mg tablet 10 mg PO DAILY PRN (Reason: seasonal rhinitis) Qty: 90 RF: 3 multivitamin with minerals 1 EACH tablet 1 cap PO DAILY RF: 0 Os-Rj 500 + D3 1 EACH tablet,chewable 1 tab-cap PO BID RF: 0 azelastine 6 ML drops 1 drp Ophthalmic BID Qty: 1 RF: 0 mupirocin 22 GM ointment 1 génesis Topical BID Qty: 1 RF: 0 fluticasone propionate 50 mcg/actuation spray,suspension 1 - 2 spray NS daily prn Qty: 1 RF: 6 albuterol sulfate [ProAir HFA] 90 mcg/actuation HFA aerosol inhaler 2 puff Inhalation Q6H PRN Qty: 3 RF: 4 metoprolol succinate 25 mg tablet extended release 24 hr 25 mg PO DAILY Qty: 90 RF: 3 fluticasone propion-salmeterol 250-50 mcg/dose blister with device 1 inh inhalation BID Qty: 60 RF: 3 Discontinued aspirin 325 MG tablet 2 - 3 tab PO BID PRNRF: 0 Hydrocortisone/Aloe Vera [Cortizone-10 1% Creme] 28 GM CREAM..G. 28 gm Topical TID RF: 0 Discharge Instructions Instructions: Cirrhosis (DC), Ascites (DC) Additional Instructions: Stop all alcohol and hepatotoxic drugs, such as acetaminophen. Stand Alone Forms: Nursing Discharge Form Referrals: aJnice Liao SLIP COVER SEAMSTRESS [Primary Care Provider] - (routine follow up after rehabilitation) Activity:: Activity as Tolerated Equipment/Supplies:: No Equipment Needed Diet:: Low Sodium Discharge Orders Discharge Orders: Discharge Order (Routine); Ordered 06/24/20 Ordered By: Marybeth Garzon Discharge Data Discharge Date/Time-TO BE ENTERED AT DEPARTURE: 06/24/20 11:08 DS: Summary Status at Discharge Functional status at discharge: uses cane/walker Overall status at discharge: patient is not back to baseline Mental Status: mental status grossly normal Speech and Movement: speech and movement normal Mood: congruent mood Affect: normal affect Exam Const General: cooperative, comfortable, no acute distress and ill appearing (older than stated age) chronically Nutritional Appearance: average body habitus Orientation: alert, awake and oriented x3 HENMT Head: normal to inspection, normocephalic and atraumatic Mouth: oral mucosae normal Resp Effort & Inspection: no cough and tachypneic Auscultation: diminished lung sounds Cardio Rate: regular rate Rhythm: regular rhythm GI Inspection: edema Palpation: nontender and ascites (extensive) Auscultation: normal bowel sounds Skin General skin exam: ecchymosis (various scattered bruising) Lesions: lesion noted (abrasion/skin tear to right upper extremity) Rashes: no rashes Neuro General: patient alert, patient awake, patient oriented x3 and moves all extremities Extrem General: no pedal edema Psych Mental Status: mental status grossly normal Speech and Movement: speech and movement normal Mood: congruent mood Affect: normal affect DS: Data Vitals/I&O Vitals and I&O: Vital Signs Temperature 36.9 C 06/23/20 11:34 Temperature Source Tympanic 06/23/20 11:34 Pulse 93 H 06/23/20 11:34 Pulse Rhythm Regular 06/23/20 11:30 Respiratory Rate 17 06/23/20 11:34 Respiratory Effort Non-Labored 06/23/20 11:30 Respiratory Depth Normal 06/23/20 11:30 Respiratory Pattern Normal 06/23/20 11:30 Blood Pressure 97/66 L 06/23/20 11:34 Blood Pressure Position Supine 06/15/20 12:06 Pulse Oximetry 95 06/23/20 11:34 Oxygen Delivery Method Room Air 06/23/20 11:34 Oxygen Flow Rate 0 06/23/20 11:34 Pain Level 0 06/23/20 04:33 Comment 06/23/20 07:56 Intake & Output 06/22/20 06/22/20 06/23/20 11:59 23:59 11:59 Intake Total 240 / 850 610 / 850 240 / 240 Output Total 150 / 350 200 / 350 Balance 90 / 500 410 / 500 240 / 240 Weight 57.7 kg 56.9 kg Intake: IV Oral 240 / 840 600 / 840 240 / 240 Output: Urine 150 / 350 200 / 350 Other: Urine Color Straw Yellow Urine Appearance Clear Clear Clear Urine Odor None Comment urine mixed with bm unsure of color. pT also incontinent in diaper Stool Size Moderate Large Moderate Stool Characteristics Soft Soft Formed Formed Hard Brown Voiding Methods Diaper Diaper Diaper Incontinent Incontinent Data Completed and Pending Labs on day of discharge: Labs from last 24 hours 06/21/20 06/21/20 13:30 07:03 Hep Bs Antigen Negative Hep Bs Antibody Negative Hep Bs Antibody, Quant <3.1 Hep B Core Total Ab Negative Hepatitis C Antibody Negative Path Cons Comment Preliminary micro results at discharge 06/21/20 13:30 Body Fluid Culture - Preliminary Peritoneal PFSH Medical History Alcohol abuse (06/11/11) macrocytosis Allergic rhinitis Ankle fracture (03/28/06) Impacted cerumen of both ears Family History Mother Essential hypertension Heart disease Father Lung cancer Brother No problems noted. Sister Essential hypertension Depression Son No problems noted. Son No problems noted. Son No problems noted. Daughter No problems noted. Daughter No problems noted. Social History Smoking/Tobacco Use Status: Never Second Hand Exposure: Yes Alcohol Intake: current Alcohol Intake frequency: 0-2 drinks per day Alcohol type: wine Drug use: Never Substance use type: does not use Caregiver/Support person: No Household members: significant other Housing: house Communication Needs: None Do you need help understanding health information?: Rarely Pets and animals: No Sexually active: Yes Do you think of yourself as: straight/heterosexual Current gender identity: female What is your relationship status?: living with partner How often do you talk on the phone with friends or family?: three or more times per week How often do you get together with friends or relatives?: decline to answer How often do you attend evangelical or methodist services?: decline to answer Do you belong to any clubs or organized social groups?: no Panel score (0-1 are the most socially isolated patients): 2 What type of physical activity do you participate in: walking Duration: 15-30 minutes/day Frequency: 1-2 times per week Ketty/Mosque: Amish Special ketty needs: No Seatbelt use: always Drive intox or ride w/intox wedding transportation driver: No Do you feel safe at home: Yes Do you feel safe in your relationship?: Yes
[2020-06-23 11:59] LABS: Fluid Type PERITONEAL; Protein,Total, BF 1.3 g/dL
[2020-06-23 14:57] LABS: COVID-19 RT-PCR Result NEGATIVE (Negative)
--- NOTE | 2020-06-23 16:55 | CMPROGNOTE_ITS ---
Care Management Progress Note Vesta's discharge was delayed due to awaiting Covid result. Her result returned this afternoon; negative. Vesta will transfer to [facility] tomorrow at 1100 via [facility], coordinated by this magnetic tape typewriter operator.
[2020-06-24 03:35] VITALS: BP 92/54; PULSE 93; RESP 16; TEMP 36.6; O2SAT 95
[2020-06-24] MEDS: Heparin 5,000 UNITS/ML VIAL 5000 UNITS SC (06:36)
[2020-06-24] MEDS: Budesonide/Formoterol 160/4.5 6 GM 60 PUFF INH IH (08:26)
[2020-06-24] MEDS: Thiamine 100 MG TAB PO (08:42)
[2020-06-24] MEDS: Magnesium Chloride 64 MG TABCR PO (08:42)
[2020-06-24] MEDS: Metoprolol 12.5 MG TAB PO (08:42)
[2020-06-24] MEDS: Omeprazole 20 MG CAPCR PO (08:42)
[2020-06-24] MEDS: Potassium Chloride 20 MEQ TABCR PO (08:42)
[2020-06-24] MEDS: Furosemide 20 MG TAB 40 MG PO (08:42)
[2020-06-24] MEDS: Normal Saline Flush 10 ML SYR IVP (08:43)
[2020-06-24] MEDS: Spironolactone 50 MG TAB 100 MG PO (08:43)
[2020-06-24] MEDS: Folic Acid 1 MG TAB PO (08:43)
[2020-06-24] MEDS: Magnesium Oxide 400 MG TAB PO (08:43)
[2020-06-24 08:57] VITALS: BP 107/76; PULSE 88; RESP 17; TEMP 36.7; O2SAT 98
[2020-06-24] MEDS: Cefpodoxime 200 MG TAB PO (09:52)
== END 2020-06-24 11:08 | disposition skilled nursing facility (03) | DRG 432 ==
LOC: ER 15:00 → MS 15:43
PROVIDERS: Family Medicine; Internal Medicine; Nurse Practitioner; Nurse Practitioner Acute Care; Nurse Practitioner Family; Surgery; Admitting Provider Internal Medicine; Emergency Provider Registered Nurse Emergency; Visit Provider Internal Medicine
DX: K70.31 Alcoholic cirrhosis of liver with ascites (principal); E43 Unspecified severe protein-calorie malnutrition; N39.0 Urinary tract infection, site not specified; I50.9 Heart failure, unspecified; R29.6 Repeated falls; R53.1 Weakness; J45.909 Unspecified asthma, uncomplicated; F32.9 Major depressive disorder, single episode, unspecified; F10.10 Alcohol abuse, uncomplicated; K21.9 Gastro-esophageal reflux disease without esophagitis; R27.0 Ataxia, unspecified; B96.20 Unspecified Escherichia coli [E. coli] as the cause of diseases classified elsewhere; I10 Essential (primary) hypertension
CPT/HCPCS: 49082; 36415; 71250; 76770; 80048; 80053; 80076; 82042; 82306; 84145; 85027; 86704; 86706; 86803; 87077; 87340; 93005; 93306; 94640; 96361; 96365; 97110; 97162; 97165; 97530; 99222; 99223; 99233; 99239; 99253; 99285; U0003; 71046; 76700; 81003; 81015; 82140; 82607; 82728; 82746; 83540; 83550; 83735; 83880; 84155; 84157; 84466; 84484; 85025; 85610; 86140; 86671; 87070; 87086; 87186; 87205; 89051; 93010; J0696; J1644; J1941; J3475; J3490

== ENCOUNTER 2020-07-12 10:05 | Outpatient (REF) | payer SELFPAY ==
[2020-07-12 12:02] LABS: Abs Immature Grans 0.05 10^3/uL (0.0-0.06); Absolute Basophil Count 0.06 10^3/uL (0.0-0.2); Absolute Eosinophil Count 0.26 10^3/uL (0.0-0.7); Absolute Lymphocyte Count 2.94 10^3/uL (1.2-3.4); Absolute Monocyte Count 0.85 10^3/uL (0.1-0.8); Absolute Neutrophil Count 6.11 10^3/uL (1.2-6.7); Basophils % 0.6; Eosinophils % 2.5; HCT 32.4 % (36.0-46.0); HGB 10.8 g/dL (11.2-15.7); Immature Grans % 0.5; Lymphocytes % 28.6; MCH 36.1 pg (27.0-33.0); MCHC 33.3 % (32.0-36.0); MCV 108.4 fL (80-95); MPV 11.2 fL (8.0-11.0); Monocytes % 8.3; Neutrophils % 59.5; Nucleated RBC 0 %; Platelet Count 274 10^3/uL (130-400); RBC 2.99 10^6/uL (3.93-5.22); RDW 13.6 % (11.7-14.6); RDW-SD 54.5 fL; WBC 10.27 10^3/uL (4.4-10.8)
[2020-07-12 12:09] LABS: ALT 19 U/L (14-59); AST 38 U/L (15-37); Albumin 2.1 g/dL (3.4-5.0); Alkaline Phosphatase 145 U/L (46-116); Anion Gap 9.9 mmol/L (3-11); BUN 17 mg/dL (7-18); Bilirubin, Total 0.5 mg/dL (0.2-1.0); CO2 25.1 mmol/L (21.0-32.0); CREATININE 0.73 mg/dL (0.55-1.02); Calcium 8.9 mg/dL (8.5-10.1); Chloride 104 mmol/L (98-107); Glucose 158 mg/dL (74-106); Potassium 4.4 mmol/L (3.5-5.1); Sodium 139 mmol/L (136-145); Total Protein 6.7 g/dL (6.4-8.2)
== END 2020-07-12 10:25 ==
LOC: LBN 10:05
PROVIDERS: Visit Provider Nurse Practitioner Adult Health
DX: I50.9 Heart failure, unspecified (principal); K70.31 Alcoholic cirrhosis of liver with ascites; K82.9 Disease of gallbladder, unspecified; I10 Essential (primary) hypertension
CPT/HCPCS: 80053; 85025

== ENCOUNTER 2021-04-06 19:39 | Outpatient (CLI) | payer MEDICARE, SELFPAY ==
--- NOTE | 2021-04-06 15:30 | DI.RAD_ITS ---
Exam(s) XR LUMBAR SPINE COMPLETE EXAM: XR LUMBAR SPINE COMPLETE CLINICAL HISTORY: lumbar back pain s/p fall m54.5 low back pain. TECHNIQUE: 2D digital imaging was performed. COMPARISON: CT CT CHEST WO from 06/15/2020 CR XR CHEST 2V PA LATERAL from 06/15/2020 FINDINGS: BONES: No fracture or destructive lesion. There is a compression deformity of the L1 vertebral body. It appears to have been present when compared to the broommaker film for the CT scan of the chest on 06/15. No facet hypertrophy identified. DISKS: There is disc space narrowing at L2-L3. Endplate osteophytes are seen at several levels. Fac et arthropathy is seen at L4-5 and L5-S1. ALIGNMENT: There is a mild left convex scoliosis. SOFT TISSUE: Normal. IMPRESSION: 1. No acute fracture or subluxation. 2. Old L1 compression fracture deformity. 3. Degenerative changes in the lumbar spine. DATA REPOSITORY: RADIATION DOSE DELIVERED:
== END 2021-04-06 19:59 ==
PROVIDERS: Visit Provider Nurse Practitioner Family
DX: M47.816 Spondylosis without myelopathy or radiculopathy, lumbar region (principal); S32.019A Unspecified fracture of first lumbar vertebra, initial encounter for closed fracture; W19.XXXA Unspecified fall, initial encounter
CPT/HCPCS: 72110

== ENCOUNTER 2023-05-22 04:14 | Outpatient (CLI) | payer MEDICARE, SELFPAY ==
[2023-05-22 09:38] LABS: Abs Immature Grans 0.01 10^3/uL (0.0-0.06); Absolute Basophil Count 0.05 10^3/uL (0.0-0.2); Absolute Eosinophil Count 0.11 10^3/uL (0.0-0.7); Absolute Lymphocyte Count 1.79 10^3/uL (1.2-3.4); Absolute Monocyte Count 0.43 10^3/uL (0.1-0.8); Absolute Neutrophil Count 1.03 10^3/uL (1.2-6.7); Basophils % 1.5; Eosinophils % 3.2; HCT 30.8 % (36.0-46.0); HGB 10.9 g/dL (11.2-15.7); Immature Grans % 0.3; Lymphocytes % 52.3; MCH 36.5 pg (27.0-33.0); MCHC 35.4 % (32.0-36.0); MCV 103 fL (80-95); MPV 9.9 fL (8.0-11.0); Monocytes % 12.6; Neutrophils % 30.1; Platelet Count 190 10^3/uL (130-400); RBC 2.99 10^6/uL (3.93-5.22); RDW 13.9 % (11.7-14.6); RDW-SD 52.8 fL; WBC 3.42 10^3/uL (4.4-10.8)
[2023-05-22 09:56] LABS: ALT 47 U/L (14-59); AST 119 U/L (15-37); Albumin 3.2 g/dL (3.4-5.0); Alkaline Phosphatase 154 U/L (46-116); Anion Gap 9.3 mmol/L (3-11); BUN 11 mg/dL (7-18); Bilirubin, Total 0.6 mg/dL (0.2-1.0); CO2 29.7 mmol/L (21.0-32.0); CREATININE 0.8 mg/dL (0.55-1.02); Calcium 8.6 mg/dL (8.5-10.1); Calculated LDL 81 mg/dL (<100); Chloride 95 mmol/L (98-107); Cholesterol 183 mg/dL (<200); Estimated GFR 77.75 (mL/min/1.73m2); Glucose 99 mg/dL (74-106); HDL Cholesterol 80 mg/dL (40-60); Potassium 4.1 mmol/L (3.5-5.1); Sodium 134 mmol/L (136-145); Total Protein 7.8 g/dL (6.4-8.2); Triglyceride 111 mg/dL (<150)
== END 2023-05-22 04:15 | disposition home or self-care (01) ==
LOC: LBO 04:15
PROVIDERS: Nurse Practitioner Family; PCP Nurse Practitioner Family; Visit Provider Nurse Practitioner Family
DX: E43 Unspecified severe protein-calorie malnutrition (principal); I10 Essential (primary) hypertension; K21.9 Gastro-esophageal reflux disease without esophagitis; R79.89 Other specified abnormal findings of blood chemistry
CPT/HCPCS: 36415; 80053; 80061; 85025

== ENCOUNTER 2023-05-29 12:25 | Outpatient (REF) | payer MEDICARE, SELFPAY ==
--- NOTE | 2023-05-29 11:40 | SKI_PTH ---
PATIENT: Vesta Gomez LOC: [facility] U#:[id number] AGE/SX: 73/F ROOM: RE05/29/[address]: Perri Washington : 1950 BED: DIS: 05/29/2023 SPEC #: [id number] RECD: 05/29/23 16:46 STATUS: ELVA REQ #: [id number] DONAL: 05/29/23 11:[address]: Perri Washington DEPT: Surgical Specimen RECD BY: Luann Callahan ENTERED: 05/29/23 16:47 SP TYPE: CHARLY RODRÍGUEZ DR: Reynaldo Houser, ANGELINA Tissues: 1 - SKIN BIOPSY(SHAVE/PUNCH) Procedures: SKIN LEVEL 4 Comments: [id number]
== END 2023-05-29 12:26 | disposition home or self-care (01) ==
LOC: LBN 12:25
PROVIDERS: PCP Nurse Practitioner Family; Visit Provider Registered Nurse Maternal Newborn
DX: L98.9 Disorder of the skin and subcutaneous tissue, unspecified (principal)
CPT/HCPCS: 88305

== ENCOUNTER 2023-07-22 09:43 | Outpatient (CLI) | payer MEDICARE, SELFPAY ==
--- NOTE | 2023-07-22 09:30 | RT.EKG_ITS ---
APPROVED REPORT Exam: Resting ECG Reason for Exam: pre op examination Patient Location: O HR:83 bpm ECG Measurements Heart Rate 83 AXIS NV 161 P 53 QRSd 93 QRS 66 QT 375 T 58 QTc 441 Conclusion Sinus rhythm...normal P axis, V-rate 50- 99 Borderline low voltage, extremity leads...all extremity leads <0.6mV Otherwise normal ECG
== END 2023-07-22 09:44 | disposition home or self-care (01) ==
LOC: DI.CM 09:45
PROVIDERS: PCP Nurse Practitioner Family; Visit Provider Nurse Practitioner Family
DX: Z01.818 Encounter for other preprocedural examination (principal)
CPT/HCPCS: 93010

== ENCOUNTER 2023-07-22 10:28 | Outpatient (CLI) | payer MEDICARE, SELFPAY ==
[2023-07-22 12:48] LABS: HCT 25.1 % (36.0-46.0); HGB 9.3 g/dL (11.2-15.7); MCH 37.2 pg (27.0-33.0); MCHC 37.1 % (32.0-36.0); MCV 100 fL (80-95); MPV 11.1 fL (8.0-11.0); Platelet Count 264 10^3/uL (130-400); RDW 17.2 % (11.7-14.6); RDW-SD 59.3 fL; WBC 5.34 10^3/uL (4.4-10.8)
[2023-07-22 13:10] LABS: ALT 28 U/L (14-59); AST 118 U/L (15-37); Albumin 2.4 g/dL (3.4-5.0); Alkaline Phosphatase 189 U/L (46-116); Anion Gap 9.7 mmol/L (3-11); BUN 4 mg/dL (7-18); Bilirubin, Total 1.2 mg/dL (0.2-1.0); CO2 27.3 mmol/L (21.0-32.0); CREATININE 0.6 mg/dL (0.55-1.02); Calcium 8.6 mg/dL (8.5-10.1); Chloride 101 mmol/L (98-107); Estimated GFR 94.72 (mL/min/1.73m2); Glucose 109 mg/dL (74-106); Potassium 3.9 mmol/L (3.5-5.1); Sodium 138 mmol/L (136-145); Total Protein 7.6 g/dL (6.4-8.2)
[2023-07-22 21:37] LABS: Lab Add On Test DONE
[2023-07-22 22:18] LABS: Vitamin B12 574 pg/mL (193-986)
[2023-07-23 11:59] LABS: Iron 145 ug/dL (50-170)
== END 2023-07-22 10:29 | disposition home or self-care (01) ==
LOC: LOS 10:28
PROVIDERS: PCP Nurse Practitioner Family; Referring Provider Nurse Practitioner Family; Visit Provider Nurse Practitioner Family
DX: R94.5 Abnormal results of liver function studies
CPT/HCPCS: 36415; 80053; 85027; 82607; 83540

== ENCOUNTER 2023-12-26 17:25 | Outpatient (REF) | payer MEDICARE, SELFPAY ==
[2023-12-26 13:40] LABS: HCT 30.4 % (36.0-46.0); HGB 11.2 g/dL (11.2-15.7); MCH 38.6 pg (27.0-33.0); MCHC 36.8 % (32.0-36.0); MCV 105 fL (80-95); MPV 11.6 fL (8.0-11.0); Platelet Count 196 10^3/uL (130-400); RDW 14.1 % (11.7-14.6); RDW-SD 53.6 fL; WBC 10.78 10^3/uL (4.4-10.8)
[2023-12-26 14:17] LABS: Iron 136 ug/dL (50-170); Total Iron Binding Capacity 130 ug/dL (250-450)
[2023-12-26 14:48] LABS: ALT 30 U/L (14-59); AST 116 U/L (15-37); Alkaline Phosphatase 158 U/L (46-116); Anion Gap 9.6 mmol/L (3-11); BUN 8 mg/dL (7-18); Bilirubin, Total 1.2 mg/dL (0.2-1.0); CO2 31.4 mmol/L (21.0-32.0); CREATININE 0.7 mg/dL (0.55-1.02); Calcium 8.2 mg/dL (8.5-10.1); Chloride 88 mmol/L (98-107); Estimated GFR 91.26 (mL/min/1.73m2); Folate 4.4 ng/mL (8.6-20.0); Glucose 103 mg/dL (74-106); Potassium 3.3 mmol/L (3.5-5.1); Sodium 129 mmol/L (136-145); Total Protein 7.7 g/dL (6.4-8.2); Vitamin B12 637 pg/mL (193-986)
[2023-12-26 14:51] LABS: Vitamin D 25 Total 142.2 ng/mL (30-100)
[2023-12-26 14:53] LABS: Ferritin > 2000 ng/mL (8-252)
== END 2023-12-26 17:26 | disposition home or self-care (01) ==
LOC: LBN 17:25
PROVIDERS: PCP Nurse Practitioner Family; Visit Provider Nurse Practitioner Family
DX: D64.9 Anemia, unspecified (principal); M81.0 Age-related osteoporosis without current pathological fracture; R94.5 Abnormal results of liver function studies
CPT/HCPCS: 36415; 80053; 82306; 85027; 82607; 82728; 82746; 83540; 83550

== ENCOUNTER 2024-01-14 04:28 | Outpatient (CLI) | payer MEDICARE, SELFPAY ==
[2024-01-14 16:19] LABS: Vitamin D 25 Total 149.3 ng/mL (30-100)
[2024-01-14 19:20] LABS: Lab Add On Test DONE
[2024-01-14 19:41] LABS: ALT 33 U/L (14-59); AST 114 U/L (15-37); Albumin 1.9 g/dL (3.4-5.0); Alkaline Phosphatase 154 U/L (46-116); Anion Gap 14.5 mmol/L (3-11); BUN 16 mg/dL (7-18); CO2 25.5 mmol/L (21.0-32.0); CREATININE 1.4 mg/dL (0.55-1.02); Calcium 7.7 mg/dL (8.5-10.1); Chloride 90 mmol/L (98-107); Estimated GFR 39.73 (mL/min/1.73m2); Glucose 123 mg/dL (74-106); Sodium 130 mmol/L (136-145)
== END 2024-01-14 04:29 | disposition home or self-care (01) ==
LOC: LBO 04:28
PROVIDERS: Family Medicine; PCP Nurse Practitioner Family; Visit Provider Nurse Practitioner Family
DX: M81.0 Age-related osteoporosis without current pathological fracture (principal); E67.3 Hypervitaminosis D
CPT/HCPCS: 36415; 80053; 82306

== ENCOUNTER 2024-03-31 15:26 | Outpatient (REF) | payer MEDICARE, SELFPAY ==
[2024-03-31 15:34] LABS: HCT 22.3 % (36.0-46.0); HGB 7.8 g/dL (11.2-15.7); MCH 36.8 pg (27.0-33.0); MPV 12.3 fL (8.0-11.0); Platelet Count 122 10^3/uL (130-400); RBC 2.12 10^6/uL (3.93-5.22); RDW 15.7 % (11.7-14.6); RDW-SD 59.2 fL; WBC 6.63 10^3/uL (4.4-10.8)
[2024-03-31 16:17] LABS: ALT 55 U/L (14-59); AST 123 U/L (15-37); Alkaline Phosphatase 132 U/L (46-116); Anion Gap 11.7 mmol/L (3-11); BUN 9 mg/dL (7-18); Bilirubin, Total 0.75 mg/dL (0.2-1.0); CO2 25.3 mmol/L (21.0-32.0); CREATININE 1.2 mg/dL (0.55-1.02); Calcium 8.8 mg/dL (8.5-10.1); Chloride 98 mmol/L (98-107); Glucose 73 mg/dL (74-106); Potassium 3.3 mmol/L (3.5-5.1); Sodium 135 mmol/L (136-145); Total Protein 7.6 g/dL (6.4-8.2)
[2024-03-31 16:29] LABS: Vitamin D 25 Total 143.5 ng/mL (30-100)
[2024-03-31 17:21] LABS: MCV 105 fL (80-95)
== END 2024-03-31 15:27 | disposition home or self-care (01) ==
LOC: LBN 15:26
PROVIDERS: PCP Nurse Practitioner Family; Visit Provider Nurse Practitioner Family
DX: D64.9 Anemia, unspecified (principal); E67.3 Hypervitaminosis D; R94.5 Abnormal results of liver function studies; R63.4 Abnormal weight loss; R13.10 Dysphagia, unspecified
CPT/HCPCS: 80053; 82306; 85027

== ENCOUNTER → 2024-04-13 08:54 | Outpatient (BNVA) | payer MEDICARE, SELFPAY | PROVIDERS: PCP Nurse Practitioner Family; Referring Provider Nurse Practitioner Family; Visit Provider Surgery | DX: R13.10 Dysphagia, unspecified (principal) | CPT/HCPCS: 99203 ==

== ENCOUNTER 2024-04-16 11:07 | Day surgery (SDC) | payer MEDICARE, SELFPAY ==
--- NOTE | 2024-04-15 21:47 | PDOC.DSDIS_ITS ---
Date of service: 04/16/24 Time of Service: 14:59 Discharge Plan Disposition Patient Disposition: Home Condition: Fair Discharge Details Reason For Visit: EGD Attending Provider: Jason Garcia Primary Care Provider: Reynaldo Ramirez Home Meds and New Rx's Prescriptions: Continued azelastine 0.05 % drops 1 drp Ophthalmic BID Qty: 1 1RF PreserVision AREDS-2 250-90-40-1 mg capsule 1 tab PO BID Qty: 180 4RF fluticasone propionate 50 mcg/actuation spray,suspension 1 - 2 spray NS daily prn Qty: 15.8 6RF albuterol sulfate [ProAir HFA] 90 mcg/actuation HFA aerosol inhaler 2 puff Inhalation Q6H PRN Qty: 3 4RF loratadine [Claritin] 10 mg tablet 10 mg PO DAILY PRN (Reason: seasonal rhinitis) Qty: 90 3RF thiamine mononitrate (vit B1) [Vitamin B-1 (mononitrate)] 100 mg tablet 100 mg PO DAILY Qty: 90 3RF omeprazole 20 mg capsule,delayed release(DR/EC) See Rx Instructions .ROUTE .COMPLEX Qty: 90 3RF Dose Instruction: TAKE 1 CAPSULE BY MOUTH DAILY Rx Instructions: TAKE 1 CAPSULE BY MOUTH DAILY metoprolol succinate 25 mg tablet extended release 24 hr See Rx Instructions .ROUTE .COMPLEX Qty: 90 3RF Dose Instruction: TAKE 1 TABLET BY MOUTH DAILY Rx Instructions: TAKE 1 TABLET BY MOUTH DAILY furosemide 20 mg tablet See Rx Instructions .ROUTE .COMPLEX PRN (Reason: swelling) Qty: 180 4RF Dose Instruction: TAKE 2 TABLETS BY MOUTH EVERY OTHER DAY Rx Instructions: TAKE 2 TABLETS BY MOUTH EVERY OTHER DAY PRN; Discharge Instructions Additional Instructions: Vesta, we were able to complete your upper endoscopy today without any difficulty. We were able to complete your EGD today just like we discussed. There are a few findings. The first is that your esophagus is narrowed around 15 cm beyond your teeth. This is quite high. I suspect this is the area that is causing the symptoms. Using the scope, I was able to open this up a bit. I am curious to see if this provides any releif. It is almost certain that this will need to be stretched again. There is a similar change towards the bottom part of the esophagus, but this might just be normal tissue. The scope passes her much e asier. This could also be stretched in the future. You have a hiatal hernia, which occurs when the top of your stomach slips above and rubs across the the diaphragm, which is a breathing muscle. I do not think this needs to be treated. Finally, there is some thickened tissue in the top part of your stomach. I am not sure what is causing this. There are a few possibilities. I performed bipsoies of this today, as well as some other areas. I want to see what these biopsies show before doing anything different. Please continue your omeprazole. You should be taking this every day. I made a follow up visit in my office for April 27 at 9:15 AM 1. If tolerated, consume a soft, low fiber diet for 1-2 days. 2[address] Do not drive, drink alcohol, operate machinery, make critical decisions, or do activities that require coordination or balance for 24 hours. 3. Because air was put into your colon during the procedure, expelling air from your rectum (passing gas or farting) is normal. 4. You may not have a bowel movement for 1-3 days because of the colonoscopy prep. This is normal. 5. Go directly to the emergency room if you notice any of the following: Develop chills (warm to touch), or if you have a thermometer and your temperature is above 101 Difficulty breathing or difficultly swallowing Persistent vomiting Severe abdominal pain, other than gas cramps Severe chest pain Black, tarry stools Any bleeding ? exceeding one tablespoon 6. Call your physician if the site where your intravenous was started becomes red, swollen, painful, and warm to touch. 7. Your physician has reviewed your pre-procedure medications. Please continue to take those medications as previously ordered. You will be given specific information/education regarding any changes to your medications before leaving. Stand Alone Forms: Anesthesia Discharge Inst., Ramesh Maradiaga (U) Referrals: Jason Garcia MD [ [facility] STAFF PHYSICIAN] - 04/27/24 9:15 am (April 27 at 9:15 AM) Activity:: Activity as Tolerated Diet:: As Tolerated Discharge Orders Discharge Orders: Discharge Order (Routine); Ordered 04/15/24 Ordered By: Jason Garcia DS: Diagnosis Discharge Diagnosis (1) Dysphagia: Status: Acute Asessment and Plan: Outpatient follow-up with biopsy results
--- NOTE | 2024-04-15 21:48 | ENDO_ITS ---
Date of service: 04/16/24 Time of Service: 15:08 Endoscopy Report DATE OF PROCEDURE: 04/16/24 PRE-OP DIAGNOSIS: dysphagia POST-OP DIAGNOSIS: other (esophageal stricture, gastric mass) PROCEDURE: EGD with biopsies SURGEON: Jason Garcia ANESTHESIA TYPE: General:No Airway ESTIMATED BLOOD LOSS: 15 PATHOLOGY: other (biopsies of esophageal mass; biopsies of esophageal stricture) COMPLICATIONS: None DISPOSITION: same day INDICATIONS: Vesta is a 74 year old woman with progressive dysphagia and weight loss. PREP: Miralax/Dulcolax PROCEDURE START TIME: 14:29 PROCEDURE END TIME: 14:40 FINDINGS: GEJ at 35 cm, stricture at 15 cm, narrowing at 33 cm, mass in the gastric cardia, Garde 3 hiatal hernia PROCEDURE DESCRIPTION: After the initiation of anesthesia, and with the assistance of a bite block, I advanced a standard gastroscope through the mouth past the hypopharynx and into the esophagus.? Under the direct vision of the scope, I advanced past the cricopharyngeus muscle. Very proximal esophagus, approximately 15 cm beyond the incisors there is an area of narrowing. It encroaches the center from the right and left, it has the appearance of an esophageal web. There is a small amount of resistance of the camera is advanced up to this, but with some manipulation I am able to advance across it. I continued advancing down the esophagus. The midportion was totally normal-appearing. GE junction measures 35 cm from the incisors, and just proximal to this around 33 cm is a well-circumscribed focus of the distal esophagus. Is another slight narrowing of the esophagus. This function in a little more from the posterior aspect. I am able to get across this with the camera without any issues. The Z-line was totally regular normal- appearing. Advanced down into the stomach and perform retroflexion. There is a grade 3 hiatal hernia. The stomach is insufflated into the rugae were obliterated. Along the gastric cardia, some thickened tissue, with an erythematous center. There is no visible vessel. Narrowband imaging was used to assist with analysis of this as well. I performed multiple biopsies of this with cold forceps. There is an appropriate amount of bleeding. The rest of the stomach appeared normal to me. I then brought the camera back up to the GE junction and examined this again. I did not see signs of Saldaña's esophagus. Camera was brought up into the esophagus proper and it was examined along its length 1 more time. Cold forceps biopsies of the upper esophageal narrowing were performed without any issue. After passage of the camera along the length the esophagus, the lumen appeared more open. There was some disruption of the mucosa, but no evidence of any deeper tissue injury. The camera was then brought out, the patient was allowed awaken from the anesthetic and transferred to the recovery unit.
[2024-04-16 11:51] VITALS: BP 91/63; PULSE 79; RESP 14; TEMP 36.6; O2SAT 94
--- NOTE | 2024-04-16 12:40 | W.ANESPRE ---
General Info Date of Service Date Performed: 04/16/24 Height: 5 ft 3 in Weight: 49.442 kg Body Mass Index (BMI): 19.3 Surgical Procedure: Operation Date: 04/16/24 12:50 Proposed Procedure Side Surgeon p Gastroscopy Jason Garcia MD Meds Allergies and Home Medications Allergies Allergy/AdvReac Type Severity Reaction Status Date / Time diphenhydramine AdvReac Unknown INTOLERANT Verified 04/16/24 12:13 Home Medication ?Medication ?Instructions ?Recorded azelastine 0.05 % eye drops 1 drp ophthalmic (eye) BID ##1 12/18/20 vit C 250 mg-vit E 90 mg-zinc 40 1 tab PO BID #180 caps 12/23/22 mg-copper 1 uk-nombkg-pflkvc capsule (PreserVision AREDS-2) albuterol sulfate 90 mcg/actuation 2 puff inhalation Q6H PRN ##3 04/04/23 aerosol inhaler (ProAir HFA) loratadine 10 mg tablet (Claritin) 10 mg PO DAILY PRN seasonal 04/04/23 rhinitis #90 tab-caps thiamine mononitrate (vit B1) 100 100 mg PO DAILY #90 tabs 04/04/23 mg tablet (Vitamin B-1 (mononitrate)) omeprazole 20 mg capsule,delayed See Rx Instructions .Route 06/28/23 release .COMPLEX #90 caps metoprolol succinate 25 mg See Rx Instructions .Route 07/16/23 tablet,extended release 24 hr .COMPLEX #90 tabs furosemide 20 mg tablet See Rx Instructions .Route 02/05/24 .COMPLEX PRN swelling #180 tabs fluticasone propionate 50 1 - 2 spray NS daily prn #15.8 mL 02/20/24 mcg/actuation nasal spray,suspension Current Visit Medications: Current Medications Generic Name Dose Route Start Last Admin Trade Name Freq PRN Reason Stop Dose Admin Ringer's Solution 1,000 mls @ 80 mls/hr 04/16/24 06:00 IV 04/16/24 23:59 INFUSION [facility] IV Miscellaneous Supplies 1 each 04/16/24 06:00 Iv Access IV 04/16/24 23:59 DIRECTED SWATHI Ondansetron HCl 4 mg 04/15/24 21:49 Ondansetron 4 Mg/2 Ml Vial IVP 05/15/24 21:48 Q4H PRN PRN Nausea / Vomiting Sodium Chloride 0 ml 04/16/24 06:00 Normal Saline Flush 10 Ml Syr IV 04/16/24 23:59 PRN PRN Sodium Chloride 0 ml 04/16/24 06:00 Normal Saline 10 Ml Vial IJ 04/16/24 23:59 DIRECTED PRN Sterile Water 0 ml 04/16/24 06:00 Water,Injection,Sterile 10 Ml Vial IJ 04/16/24 23:59 DIRECTED PRN PFSH Active Problems Active Problems: Problem Status Onset Code Weight loss Acute R63.4 Dysphagia Acute R13.10 Lip lesion Acute K13.0 Anemia Chronic D64.9 Cataract Chronic H26.9 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 Cirrhosis of liver Acute K74.60 Severe protein-calorie malnutrition Acute E43 Ascites Acute R18.8 Discharge planning issues Acute Z02.9 DVT prophylaxis Acute Z29.9 CHF (congestive heart failure) Resolved I50.9 Impacted cerumen of both ears Acute H61.23 Allergic rhinitis Chronic J30.9 Asthma Chronic J45.909 Depression Chronic F32.9 Elevated LFTs Chronic 05/02/17 R94.5 Esophageal reflux Chronic K21.9 Hypertension Chronic I10 Osteoporosis Chronic M81.0 Syncope Resolved 03/30/15 R55 Medical History Medical History Basal cell carcinoma of face Vitamin D overdose Lesion of skin of face Ankle fracture (03/28/06) Tobacco Smoking/Tobacco Use Status: Never Passive smoking exposure: Yes Second hand exposure: Yes Alcohol Alcohol Intake: current Alcohol intake frequency: a few times a week Alcohol type: wine Details: Abstaining with exception of 2 drinks on - Substance Use Substance use: Never Substance use type: does not use Details: Last ETOH on 04/15/2024 at 1700, 1.5 glasses of wine Vital Signs and Lab Results Vital Signs Most Recent Vital Signs in EMR: Most Recent Vital Signs Temp Pulse Resp BP Pulse Ox 36.6 C 79 14 91/63 L 94 04/16/24 11:51 04/16/24 11:51 04/16/24 11:51 04/16/24 11:51 04/16/24 11:51 Lab Results Blood Type / Crossmatch: No Data to Display Complete Blood Count: White Blood Count 6.63 10^3/uL (4.4-10.8) 03/31/24 11:10 Red Blood Count 2.12 10^6/uL (3.93-5.22) L 03/31/24 11:10 Hemoglobin 7.8 g/dL (11.2-15.7) L 03/31/24 11:10 Hematocrit 22.3 % (36.0-46.0) L 03/31/24 11:10 Platelet Count 122 10^3/uL (130-400) L 03/31/24 11:10 Complete Metabolic Panel: Sodium 135 mmol/L (136-145) L 03/31/24 11:10 Potassium 3.3 mmol/L (3.5-5.1) L 03/31/24 11:10 Chloride 98 mmol/L (98-107) 03/31/24 11:10 Carbon Dioxide 25.3 mmol/L (21.0-32.0) 03/31/24 11:10 BUN 9 mg/dL (7-18) 03/31/24 11:10 Creatinine 1.2 mg/dL (0.55-1.02) H 03/31/24 11:10 Est GFR (CKD-EPI 2020) 47.50 (mL/min/1.73m2) 03/31/24 11:10 Calcium 8.8 mg/dL (8.5-10.1) 03/31/24 11:10 Albumin 2.0 g/dL (3.4-5.0) L 03/31/24 11:10 Glucose 73 mg/dL (74-106) L 03/31/24 11:10 Liver Function Panel: Alanine Aminotransferase (ALT/SGPT) 55 U/L (14-59) 03/31/24 11:10 Aspartate Amino Transf (AST/SGOT) 123 U/L (15-37) H 03/31/24 11:10 Coagulation Panel: No Data to Display Cardiac Panel: No Data to Display Arterial Blood Gas: No Data to Display Venous Blood Gas: No Data to Display Pancreas Panel: No Data to Display Thyroid Panel: No Data to Display Infectious Disease: No Data to Display Blood Cultures: No Data to Display Toxicology Panel: No Data to Display Imaging and Studies Imaging and Studies Study information below may be from another EMR and interpreted by another provider. Please see original notes in EMR for more complete details. EKG Summary: 07/22/23 Conclusion Sinus rhythm...normal P axis, V-rate 50- 99 Borderline low voltage, extremity leads...all extremity leads <0.6mV Otherwise normal ECG Echocardiogram Summary: 03/14/21 at [facility] [place] EF 67% Mild AR, MR, and TR Anesthesia Assessment and Plan Anesthesia History Personal History: No History of Anesthesia Complications Family History: No Family History of Anesthesia Complications Exercise Tolerance Exercise Tolerance: Metabolic Equivalents<4 Pertinent Negatives Pertinent Negatives: No Major Cardiovascular Symptoms or Complaints and No Major Pulmonary Symptoms or Complaints Cardiac & Pulmonary Exam Cardiac Exam: Normal S1/S2 Heart Sounds Pulmonary Exam: Clear Bilateral Breath Sounds Cardiac and Pulmonary Comment:: Chronic allergic throat clearing Implantable Cardiac Device Does patient have a Pacemaker or an ICD?: No Airway Exam Known Difficult Airway: No Mallampati Class: 3 Mouth Opening: Normal (> 3cm) Thyromental Distance: Less than 3 cm Neck Range of Motion: Limited ROM Neck Circumference: Normal Teeth Condition: Normal Dentition ASA Classification ASA Score: ASA 3 Emergency Case?: No NPO Status NPO Status: NPO Clears >2 hours, Solids >8 hours Anesthesia Plan Resuscitation Status: Full Code Anesthesia Technique: General Anesthesia Airway Planned: Natural Airway Monitors Used: Standard Monitors Preoperative Comments:: Dysphagia and weight loss
[2024-04-16] MEDS: Lactated Ringers 1,000 ML 80 ML IV (13:19)
[2024-04-16 13:35] VITALS: BMI 19.3
--- NOTE | 2024-04-16 14:31 | STOM_PTH ---
PATIENT: Vesta Gomez LOC: [facility] U#:[id number] AGE/SX: 74/F ROOM: RE04/16/[address]: Jason Garcia MD : 1950 BED: DIS: 04/16/2024 SPEC #: [id number] RECD: 04/16/24 15:32 STATUS: ELVA RE #: [id number] DONAL: 04/16/24 14:[address]: Jason Garcia DEPT: Surgical Specimen RECD BY: Luann Callahan ENTERED: 04/16/24 15:33 SP TYPE: STOMACH OTHR DR: Reynaldo Houser DNP Tissues: 1 - STOMACH BIOPSY 2 - ESOPHAGUS BIOPSY Procedures: SPECIAL STAIN 2 GROSS AND MICRO LEVEL 4 IMMUNOPEROXIDASE STAIN Comments: [id number]
[2024-04-16 14:47] VITALS: BP 99/63; PULSE 95; RESP 16; TEMP 35.9; O2SAT 16
--- NOTE | 2024-04-16 15:18 | W.ANESPOSTOP ---
Postoperative Evaluation Date, Time and Location Date Performed: 04/16/24 Time Performed: 15:02 Patient Location: Day Surgery Unit Vital Signs Most Recent Imported Vital Signs: Most Recent Vital Signs Temp Pulse Resp BP Pulse Ox 35.9 C L 95 H 16 99/63 L 16 L 04/16/24 14:47 04/16/24 14:47 04/16/24 14:47 04/16/24 14:47 04/16/24 14:47 Pain Score Most Recent Pain Score: Most Recent Pain Score Pain Level 0 04/16/24 14:47 Assessment Mental Status: Awake (Alert & Oriented to Patient Baseline) Airway and Respiratory Function: Patent airway with normal (patient baseline) respiratory exam Cardiovascular Function: Hemodynamically Stable Hydration Status: Adequately Hydrated Nausea & Vomiting: No Nausea or Vomiting Pain: Pt. Denies Any Pain Peripheral Nerve Block: Patient did not receive a nerve block
[2024-04-16 15:30] VITALS: BP 102/69; PULSE 90; RESP 16; TEMP 36.1; O2SAT 100
== END 2024-04-16 16:00 | disposition home or self-care (01) ==
LOC: SUR 11:08
PROVIDERS: PCP Nurse Practitioner Family; Visit Provider Surgery
PROC: 0DJ68ZZ Inspection of Stomach, Via Natural or Artificial Opening Endoscopic (ICD-10-PCS; CPT 43235; principal; 2024-04-16 12:45)
DX: R13.10 Dysphagia, unspecified (principal); K22.2 Esophageal obstruction; K31.9 Disease of stomach and duodenum, unspecified
CPT/HCPCS: 43239; 88305; 88313; 88361; J2001; J2704

== ENCOUNTER → 2024-04-27 11:40 | Outpatient (BNVA) | payer MEDICARE, SELFPAY | PROVIDERS: PCP Nurse Practitioner Family; Referring Provider Nurse Practitioner Family; Visit Provider Surgery | DX: Z48.815 Encounter for surgical aftercare following surgery on the digestive system (principal) | CPT/HCPCS: 99443 ==

== ENCOUNTER 2024-05-12 01:39 | Outpatient (CLI) | payer MEDICARE, SELFPAY ==
--- NOTE | 2024-05-12 07:30 | DI.CT_ITS ---
Exam(s) CT ABDOMEN PELVIS W EXAM: CT ABDOMEN PELVIS W CLINICAL HISTORY: wt loss with abnormality on EGD,dysphagia,r63.4 TECHNIQUE: Imaging Protocol: Axial computed tomography images with coronal and sagittal reformatted images were created and reviewed. CONTRAST MATERIAL: Intravenous: Omnipaque 350 Contrast volume:70 mL Oral: Yes COMPARISON: CT CT CHEST WO from 06/15/2020 FINDINGS: ABDOMEN: Lung Bases: There are persistent small pleural effusions which have decreased in size compared to the prior examination. Mild subjacent infiltrates are seen which may represent atelectasis or new pneum onia. There is a small hiatal hernia. Liver: The liver has a mildly nodular contour suspicious for hepatic cirrhosis. There is a recanaliz ed umbilical vein. No measurable mass. Portal, Superior Mesenteric, and Splenic Veins: Unremarkable. Gallbladder and Biliary Tract: No radiodense calculus or dilation. Pancreas: Normal density, no abnormal calcifications or inflammatory process. Spleen: Normal. Adrenals: No masses seen. Kidneys: Normal size, contour and axis. No radiodense stones or obstructive uropathy. No masses seen. Abdominal Aorta: Abdominal portion non-dilated. Atherosclerotic calcification is present. Bowel: No obstruction or bowel wall thickening. No evidence of appendicitis. Peritoneal Cavity: There is a moderate amount of abdominal pelvic ascites. No free air. Lymph Nodes: Within normal limits. Bones: Within normal limits for the patient's age. There is an old L1 compression fracture deformity . Soft Tissues: There are small bilateral fluid containing inguinal hernias. PELVIS: Bladder: Symmetric distention, no gross wall thickening. Reproductive Organs: Unremarkable as visualized. Lymph Nodes: Within normal limits. Bones: Within normal limits for the patient's age. IMPRESSION: 1. Findings suggestive of hepatic cirrhosis and portal hypertension with moderate amount of abdominal ascites. 2. Small hiatal hernia. 3. Small bilateral pleural effusions and adjacent atelectasis which has decreased in size compared to the prior examination. 4. No evidence of abdominal or pelvic metastatic disease. RADIATION DOSE DELIVERED: Total DLP DATA REPOSITORY: All CT scans at this facility are submitted to the National Radiology Data Registry (NRDR) Dose Index Registry (DIR) with the [employer] ([employer]). RADIATION OPTIMIZATION: All CT scans at this facility use at least one of these dose optimization te chniques: automated exposure control; mA and/or kV adjustment per patient size (includes targeted exa ms where dose is matched to clinical indication); or iterative reconstruction.
[2024-05-12] MEDS: Barium Sulfate 2% W/V-Berry Smoothie 450 ML BTL PO ×2 (09:32→09:33)
[2024-05-12 09:38] LABS: CREATININE 1.1 mg/dL (0.55-1.02); Estimated GFR 52.73 (mL/min/1.73m2)
[2024-05-12] MEDS: Normal Saline - Diluent 50 ML VIAL IJ (11:39)
[2024-05-12] MEDS: Omnipaque 350 MG/ML 500 ML BTL-Imaging package 100 ML IJ (11:40)
== END 2024-05-12 01:59 ==
PROVIDERS: PCP Nurse Practitioner Family; Visit Provider Surgery
DX: J90 Pleural effusion, not elsewhere classified (principal); K44.9 Diaphragmatic hernia without obstruction or gangrene
CPT/HCPCS: 74177; 82565

== ENCOUNTER 2024-06-22 08:15 | Outpatient (CLI) | payer MEDICARE, SELFPAY ==
--- NOTE | 2024-06-22 08:15 | RT.EKG_ITS ---
APPROVED REPORT Exam: Resting ECG Reason for Exam: Pre-op examination Patient Location: O HR:76 bpm ECG Measurements Heart Rate 76 AXIS NV 177 P 76 QRSd 97 QRS 62 QT 410 T 16 QTc 462 Conclusion Sinus rhythm...normal P axis, V-rate 50- 99 Low voltage, extremity and precordial leads...extremity<0.5mV, precordial<1.0mV Diffuse nondiagnostic ST-T abnormalities
== END 2024-06-22 08:16 | disposition home or self-care (01) ==
LOC: DI.CM 08:16
PROVIDERS: PCP Nurse Practitioner Family; Visit Provider Nurse Practitioner Family
DX: Z01.818 Encounter for other preprocedural examination (principal)
CPT/HCPCS: 93010